=== PATIENT | female | born 1955 | race Hispanic/Latino ===

== ENCOUNTER 2016-12-21 07:31 | Emergency (ER) | payer MEDICARE ==
--- NOTE | 2016-12-21 10:38 | Emergency Department Report ---
ED Upper Extremity Inj HPI - General Chief Complaint: Extremity Injury, Upper Stated Complaint: RT WRIST AND ARM PAIN Time Seen by Provider: 12/21/16 10:25 Source: patient Mode of arrival: Ambulatory Limitations: No Limitations - History of Present Illness Initial Comments: Patient here reports pain to right wrist radiating down to her thumb that has been going on for approximately one week she says she had a fall about a month ago and did not follow up. She says she did not have any x-ray done of her wrist. Pain is radiating to her thumb third and fourth digit. She denies any numbness or tingling. Complaint: Injury to:: right, wrist Onset/Timin -: week(s) Other Extremity Injury: Hand: Right (pain radiating from wrist), Wrist: Right ( pain) Other Injuries: none Handedness: right Improves With: immobilization Worsens With: movement of extremity Context: fall Associated Symptoms: denies: weakness, numbness, neck pain, suspects foreign body, nausea/vomiting, heard/felt popping sensat Treatments Prior to Arrival: other (tylenol) - Related Data Home Medications Medication Instructions Recorded Confirmed Last Taken Albuterol Sulfate [Proventil HFA] 1 - 2 puff IH Q4H PRN 12/04/14 12/11/14 Furosemide [Lasix] 40 mg PO Q48H 12/04/14 12/11/14 12/09/14 Potassium Chloride 20 meq PO Q48HR 12/04/14 12/11/14 12/09/14 Tizanidine HCl [tiZANidine] 4 mg PO BID 12/04/14 12/11/14 12/10/14 Previous Rx's Medication Instructions Recorded Last Taken Type ALBUTEROL NEB's [Proventil 0.083% 2.5 mg IH TID PRN #60 ml 12/18/14 Unknown Rx NEBS] Carvedilol [Coreg] 12.5 mg PO BID #60 tablet 12/18/14 Unknown Rx Ezetimibe/Simvastatin (Nf) 1 tab PO QHS #30 tablet 12/18/14 Unknown Rx [Vytorin 10-40 mg (Nf)] Fluticasone/Salmeterol [Advair 1 puff IH BID #1 disk.w.dev 12/18/14 Unknown Rx Diskus 100-50 mcg] Gabapentin 300 mg PO TID #90 capsule 12/18/14 Unknown Rx Insulin Aspart [NovoLOG 100 30 units SQ TID #1 vial 12/18/14 Unknown Rx UNITS/ML VIAL] Insulin NPH, Human [NovoLIN N] 80 units SQ Q12H #1 vial 12/18/14 Unknown Rx Meloxicam [Mobic] 7.5 mg PO BID #30 tablet 12/18/14 Unknown Rx Pantoprazole [Protonix TAB] 40 mg PO QDAY #30 tablet 12/18/14 Unknown Rx Sertraline [Zoloft] 50 mg PO QDAY #30 tablet 12/18/14 Unknown Rx amLODIPine [Norvasc] 5 mg PO DAILY #30 tablet 12/18/14 Unknown Rx Cephalexin [Keflex] 500 mg PO Q8HR #30 cap 02/08/16 Unknown Rx predniSONE [Deltasone] 50 mg PO QDAY #5 tab 02/08/16 Unknown Rx traMADol [Ultram 50 MG tab] 50 mg PO Q6HR PRN #20 tablet 12/21/16 Unknown Rx Allergies Allergy/AdvReac Type Severity Reaction Status Date / Time ibuprofen AdvReac Hives Verified 12/21/16 08:12 naproxen [From Naprosyn] AdvReac Hives Verified 12/21/16 08:12 ED Review of Systems ROS: Stated complaint: RT WRIST AND ARM PAIN Other details as noted in HPI Comment: All other systems reviewed and negative Constitutional: denies: chills, fever Respiratory: no symptoms reported Cardiovascular: denies: chest pain, palpitations, edema, syncope Gastrointestinal: denies: nausea, vomiting Musculoskeletal: arthralgia. denies: back pain, joint swelling Skin: denies: rash Neurological: denies: headache, weakness, numbness, paresthesias ED Past Medical Hx - Past Medical History Previous Medical History?: Yes Hx Hypertension: Yes Hx Diabetes: Yes Hx Renal Disease: No Hx Arthritis: Yes Hx Asthma: Yes (2004 OX [place] 2L/MIN AT NIGHT AND DAILY PRN) Hx COPD: Yes (Per pulmonology note; pt denies) Additional medical history: sleep apnea - Surgical History Past Surgical History?: Yes Hx Cholecystectomy: Yes Additional Surgical History: bilateral knee replacements, hernia repair - Family History Family history: hypertension - Social History Smoking Status: Never Smoker Substance Use Type: None - Medications Home Medications: Home Medications Medication Instructions Recorded Confirmed Last Taken Type Albuterol Sulfate [Proventil HFA] 1 - 2 puff IH Q4H PRN 12/04/14 12/11/14 History Furosemide [Lasix] 40 mg PO Q48H 12/04/14 12/11/14 12/09/14 History Potassium Chloride 20 meq PO Q48HR 12/04/14 12/11/14 12/09/14 History Tizanidine HCl [tiZANidine] 4 mg PO BID 12/04/14 12/11/14 12/10/14 History ALBUTEROL NEB's [Proventil 0.083% 2.5 mg IH TID PRN #60 ml 12/18/14 Unknown Rx NEBS] Carvedilol [Coreg] 12.5 mg PO BID #60 tablet 12/18/14 Unknown Rx Ezetimibe/Simvastatin (Nf) 1 tab PO QHS #30 tablet 12/18/14 Unknown Rx [Vytorin 10-40 mg (Nf)] Fluticasone/Salmeterol [Advair 1 puff IH BID #1 disk.w.dev 12/18/14 Unknown Rx Diskus 100-50 mcg] Gabapentin 300 mg PO TID #90 capsule 12/18/14 Unknown Rx Insulin Aspart [NovoLOG 100 30 units SQ TID #1 vial 12/18/14 Unknown Rx UNITS/ML VIAL] Insulin NPH, Human [NovoLIN N] 80 units SQ Q12H #1 vial 12/18/14 Unknown Rx Meloxicam [Mobic] 7.5 mg PO BID #30 tablet 12/18/14 Unknown Rx Pantoprazole [Protonix TAB] 40 mg PO QDAY #30 tablet 12/18/14 Unknown Rx Sertraline [Zoloft] 50 mg PO QDAY #30 tablet 12/18/14 Unknown Rx amLODIPine [Norvasc] 5 mg PO DAILY #30 tablet 12/18/14 Unknown Rx Cephalexin [Keflex] 500 mg PO Q8HR #30 cap 02/08/16 Unknown Rx predniSONE [Deltasone] 50 mg PO QDAY #5 tab 02/08/16 Unknown Rx traMADol [Ultram 50 MG tab] 50 mg PO Q6HR PRN #20 tablet 12/21/16 Unknown Rx ED Physical Exam - General Limitations: No Limitations General appearance: alert, in no apparent distress - Head Head exam: Present: atraumatic, normocephalic, normal inspection - Respiratory Respiratory exam: Present: normal lung sounds bilaterally, respiratory distress. Absent: chest wall tenderness - Cardiovascular Cardiovascular Exam: Present: regular rate, normal rhythm, normal heart sounds - Extremities Exam Extremities exam: Present: normal inspection, full ROM, tenderness (right wrist) , normal capillary refill. Absent: pedal edema, joint swelling, calf tenderness - Expanded Upper Extremity Exam Right General: Present: normal inspection. Absent: laceration, abrasion Shoulder Exam: Present: normal inspection, full ROM. Absent: tenderness, swelling, abrasion, laceration, ecchymosis, deformity, crepidus, dislocation, erythema, tenderness over AC joint Upper Arm exam: Present: normal inspection, full ROM. Absent: tenderness, swelling, abrasion, laceration, ecchymosis, deformity, crepidus, dislocation, erythema Elbow exam: Present: normal inspection, full ROM. Absent: tenderness, swelling , abrasion, laceration, ecchymosis, deformity, crepidus, dislocation, erythema, effusion, pain w/ pronation/supination, tenderness over radial head Forearm Wrist exam: Present: normal inspection, full ROM, tenderness. Absent: swelling, abrasion, laceration, ecchymosis, deformity, crepidus, dislocation, erythema, tenderness over anatomical snuff box, pain with axial thumb loading Hand Wrist exam: Present: normal inspection, full ROM. Absent: tenderness, swelling, abrasion, laceration, ecchymosis, deformity, crepidus, dislocation, erythema, amputation, nail avulsion, subungual hematoma Neuro motor exam: Present: wrist extension intact, thumb opposition intact, thumb IP flexion intact. Absent: thumb adduction intact, fingers 2-5 abduction intact Neurosensory exam: Present: 2-point discrimination, radial nerve intact, ulnar nerve intact, median nerve intact Vascular: Present: vascular compromise, normal capillary refill. Absent: Pallo , pulse deficit radial art, pulse deficit ulnar art, pulse deficit brachial art , radial pulse, brachial pulse, ulnar pulse - Back Exam Back exam: Present: normal inspection, full ROM. Absent: tenderness, CVA tenderness (R), CVA tenderness (L), muscle spasm, paraspinal tenderness, vertebral tenderness, rash noted - Neurological Exam Neurological exam: Present: alert, oriented X3, normal gait, reflexes normal. Absent: motor sensory deficit - Psychiatric Psychiatric exam: Present: normal affect, normal mood - Skin Skin exam: Present: warm, dry, intact, normal color. Absent: rash ED Course Vital Signs 12/21/16 12/21/16 12/21/16 08:07 10:53 11:52 Temperature 98.5 F Pulse Rate 90 84 Respiratory 19 20 16 Rate Blood Pressure 142/69 Blood Pressure 136/74 [Right] O2 Sat by Pulse 97 96 Oximetry - Reevaluation(s) Reevaluation #1: 12/21/16 11:32 Patient given Laurel 5/325 mg 2 tablets in emergency room which relieved the wrist pain. - Orthopedic Splinting/Casting Injury #1 Side: right Upper Extremity Injury Location: wrist Upper Extremity Immobilizer: wrist splint ED Medical Decision Making - Radiology Data Radiology results: report reviewed X-ray report revealed no fracture or dislocation. - Medical Decision Making ED course: Patient here status post right wrist injury complaining of pain. He was seen and treated emergency room for arthralgia right wrist. Patient was referred to orthopedic doctor if she continues to have pain to her right wrist. I explained to patient that her that wrist x-ray revealed no fracture or dislocation. Patient was given Laurel 5/325 2 tablets in emergency room which relieved her pain. She was discharged home with family with prescription for tramadol. Critical care attestation.: If time is entered above; I have spent that time in minutes in the direct care of this critically ill patient, excluding procedure time. ED Disposition Clinical Impression: Arthralgia of right wrist Wrist injury Qualifiers: Encounter type: initial encounter Laterality: right Qualified Code(s): S69.91XA - Unspecified injury of right wrist, hand and finger(s), initial encounter Disposition: DISCHARGED TO HOME OR SELFCARE Is pt being admited?: No Does the pt Need Aspirin: No Condition: Stable Instructions: Wrist Injury (ED), Arthralgia (ED) Prescriptions: traMADol [Ultram 50 MG tab] 50 mg PO Q6HR PRN #20 tablet PRN Reason: Pain Referrals: PRIMARY CARE, [Primary Care Provider] - 3-5 Days Forms: Work/School Release Form(ED)
[2016-12-21] MEDS ORDERED: NORCO 5/325 PO ONE (10:43)
--- NOTE | 2016-12-21 11:16 | XRay Report ---
RIGHT WRIST, 3 VIEWS: History: wrist pain, injury. Normal bone mineralization. 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 Osteoarthritic changes are most pronounced at the base of the thumb. No evidence for displaced fracture, dislocation or ligamentous injury. The soft tissues are unremarkable. IMPRESSION: No acute osseous injury is identified. Degenerative changes.
[2016-12-21 11:53] VITALS: BP 136/74
== END 2016-12-21 11:52 | disposition home or self-care (01) ==
LOC: ED 07:31
DX: S69.91XA Unspecified injury of right wrist, hand and finger(s), initial encounter (principal); I10 Essential (primary) hypertension; E11.9 Type 2 diabetes mellitus without complications; J45.909 Unspecified asthma, uncomplicated; J44.9 Chronic obstructive pulmonary disease, unspecified; Z90.49 Acquired absence of other specified parts of digestive tract

== ENCOUNTER 2021-02-20 08:10 | Day surgery (SDC) | payer MEDICARE ==
[~2021-02-20 08:10] MED LIST: SODIUM CHLORIDE 0.9% 1000 ML 1,000 ML IV SCH
[2021-02-20] MEDS ORDERED: LIDOCAINE MPF (2%) 20 MG/1 ML VIAL 5 ML ONE (08:30)
--- NOTE | 2021-02-20 08:34 | Anesthesia Day of Surgery ---
Anesthesia Day of Surgery - Day of Surgery Patient Examined: Yes Patient H&P Reviewed: Yes Patient is NPO: Yes
--- NOTE | 2021-02-20 08:36 | Anesthesia Consultation ---
Anesthesia Consult and Med Hx Date of service: 02/20/21 - Airway Anesthetic Teeth Evaluation: Edentulous ROM Head & Neck: Adequate Mental/Hyoid Distance: Adequate Mallampati Class: Class III Intubation Access Assessment: Probably Good - Pre-Operative Health Status ASA Pre-Surgery Classification: ASA4 Proposed Anesthetic Plan: MAC - Pulmonary Hx Smoking: No Hx Asthma: Yes (2004 [place] 2L/MIN AT NIGHT AND DAILY PRN) Hx Respiratory Symptoms: Yes (RAHMAN) SOB: No COPD: Yes (Per pulmonology note; pt denies) Home Oxygen Therapy: Yes Hx Sleep Apnea: Yes - Cardiovascular System Hx Hypertension: Yes Hx Coronary Artery Disease: No (Pt reports negative NST 3-4 years ago) - Central Nervous System Hx Back Pain: Yes Hx Psychiatric Problems: No - Gastrointestinal Hx Gastroesophageal Reflux Disease: Yes - Endocrine Hx Renal Disease: No Hx Insulin Dependent Diabetes: Yes Hx Thyroid Disease: No - Hematic Hx Anemia: No - Other Systems Hx Cancer: No Hx Obesity: Yes
[2021-02-20] MEDS ORDERED: fentaNYL 100 MCG/2 ML INJ ONE (09:04)
[2021-02-20] MEDS ORDERED: KETAMINE/STERILE WATER 50 MG/ML SYRINGE ONE (09:05)
[2021-02-20] MEDS ORDERED: propofoL 200 MG/20 ML VIAL IV ONE ×2 (09:05→09:18)
--- NOTE | 2021-02-20 09:38 | Procedure Note ---
Date of procedure: 02/20/21 Pre-op diagnosis: Dysphagia and GERD Post-op diagnosis: other (Mild,Benign Esophageal Stenosis (s/p Esophageal Dilation)/ Mild to Moderate Erosive Esophagitis/ Gastritis and Gastric Nodules/ R/O Celaic Disease) Procedure: EGD with biopsy and s/p Esophageal dilation (Bynum Dilators-38 Fr and 42 Fr) Anesthesia: MAC Surgeon: STUART MAKI Estimated blood loss: minimal Pathology: list Specimen disposition: to lab Condition: stable Disposition: same day (Treat with PPI and Reglan, and encourage Probiotic use. Avoid aspirin and NSAID for 5 days, otherwise resume home medciation and follow up in 1 to 2 weeks ([phone]).)
--- NOTE | 2021-02-20 10:20 | Operative Report ---
DATE OF SURGERY: 02/20/2021 PROCEDURE: EGD with biopsy and esophageal dilation. INDICATIONS: This is a 66-year-old obese white female with an underlying history of diabetes mellitus, hypertension, who has lately been having problems with dysphagia. EGD was done to assess for the problem. DESCRIPTION OF PROCEDURE: Procedure was done after getting informed consent with MAC anesthesia. Instrument was passed through the hypopharynx into the esophagus, which showed some mild benign esophageal stenosis. This was dilated at the end of the procedure with a 38 and then subsequently with a 42-Danish Bynum dilator. There was some ekij-in-keuhsgcy distal erosive esophagitis present. Biopsy was obtained also from the distal esophagus. The stomach showed some gastric nodules in the antrum and some gastritis. Biopsy was done from the gastric nodule and the antrum, body, and angularis incisura to rule out for H. pylori and atrophic gastritis and to assess the gastric nodules, no gastric ulcers were noted. The pylorus was patent. The duodenum in the first and second portion appeared normal. Biopsy was done from the second part to rule out for possible celiac disease. IMPRESSION: Dysphagia, mild benign esophageal stenosis, gastritis, gastric nodule, rule out celiac disease, mild to moderate erosive esophagitis. PLAN: To treat the patient with PPI, have the patient avoid aspirin and aspirin-related products for the next few days and otherwise resume home medications and follow up in the office in 1-2 weeks' time. Procedure was done in the GI lab with assistance of the GI lab team, which included Luanne Caballero and Delfnia sanon, and with assistance of anesthesia. TID: [id number] RECEIPT: [id number] ALEXANDER/RAYMON
[2021-02-20 10:24] VITALS: BP 129/66
--- NOTE | 2021-02-20 10:51 | Post Anesthesia Evaluation ---
- Post Anesthesia Evaluation Patient Participated: Yes Airway Patent: Yes Stable Respiratory Function: Yes Nausea/Vomiting: No Temp > 96.8F: Yes Pain Manageable: Yes Adequeate Hydration: Yes Anesthesia Complications: No Block Receding Appropriately: Not Applicable Patient on Ventilator: No
== END 2021-02-20 10:15 | disposition home or self-care (01) ==
LOC: GIO 08:10
DX: R13.10 Dysphagia, unspecified (principal); K22.2 Esophageal obstruction; K29.70 Gastritis, unspecified, without bleeding; K31.89 Other diseases of stomach and duodenum; E11.9 Type 2 diabetes mellitus without complications; I10 Essential (primary) hypertension; G47.33 Obstructive sleep apnea (adult) (pediatric); E78.5 Hyperlipidemia, unspecified; D64.9 Anemia, unspecified; E66.01 Morbid (severe) obesity due to excess calories; M17.9 Osteoarthritis of knee, unspecified; J44.9 Chronic obstructive pulmonary disease, unspecified; K21.00 Gastro-esophageal reflux disease with esophagitis, without bleeding; F32.9 Major depressive disorder, single episode, unspecified; Z79.899 Other long term (current) drug therapy; Z79.4 Long term (current) use of insulin; Z90.49 Acquired absence of other specified parts of digestive tract; Z98.890 Other specified postprocedural states; Z68.43 Body mass index [BMI] 50.0-59.9, adult
CPT/HCPCS: 43239; 43450; 82962; 88305; 88312; 88342; J2704; J3010; J3490; J7030

== ENCOUNTER 2021-03-10 16:20 | Observation (INO) | payer MEDICARE, OTHER ==
--- NOTE | 2021-03-10 20:27 | Event Note ---
ED Screening Note ED Screening Note: Patient is a 66-year-old female presents emergency room complaints of shortness of breath that began 2 weeks ago She reports that she had her esophagus stretched 2 weeks ago and she has had symptoms since then She states that she has dyspnea on exertion and she is unable to lie flat at night She also has bilateral lower extremity edema This initial assessment/diagnostic orders/clinical plan/treatment(s) is/are subject to change based on patients health status, clinical progression and re- assessment by fellow clinical providers in the ED. Further treatment and workup at subsequent clinical providers discretion. Patient/guardian urged not to elope from the ED as their condition may be serious if not clinically assessed and managed. Initial orders include: Labs, x-ray, EKG, urine
[2021-03-10 20:56] LABS: Basophils % (Auto) 0.5 % (0.0-1.8); Eosinophils # (Auto) 0.2 K/mm3 (0.0-0.4); Eosinophils % (Auto) 2.7 % (0.0-4.3); Hematocrit 37.1 % (30.3-42.9); Hemoglobin 12.8 gm/dl (10.1-14.3); Lymphocytes # (Auto) 1.9 K/mm3 (1.2-5.4); Lymphocytes % (Auto) 29.1 % (13.4-35.0); Mean Corpuscular HGB Conc 34 % (30-34); Mean Corpuscular Volume 85 fl (79-97); Monocytes # (Auto) 0.3 K/mm3 (0.0-0.8); Monocytes % (Auto) 5.5 % (0.0-7.3); Platelet Count 220 K/mm3 (140-440); Red Blood Count 4.39 M/mm3 (3.65-5.03); Red Cell Distribution Width 14.5 % (13.2-15.2)
--- NOTE | 2021-03-10 21:00 | XRay Report ---
CHEST 2 VIEWS INDICATION / CLINICAL INFORMATION: Chest Pain. Difficulty swallowing. COMPARISON: None available. FINDINGS: SUPPORT DEVICES: None. HEART / MEDIASTINUM: No significant abnormality. LUNGS / PLEURA: No significant pulmonary or pleural abnormality. No pneumothorax. ADDITIONAL FINDINGS: No significant additional findings. IMPRESSION: 1. No acute findings. Signer Name: Nicolas Villa MD Signed: 03/10/2021 8:56 PM Workstation Name: [id number]
[2021-03-10 21:11] LABS: Alanine Aminotransferase 38 units/L (7-56); Albumin 3.8 g/dL (3.9-5); Blood Urea Nitrogen 5 mg/dL (7-17); Hemolysis Index 5
[2021-03-10 21:15] LABS: BUN/Creatinine Ratio 8
[2021-03-10 21:56] LABS: Bacteria,Urine 1+ /HPF (Negative); Bilirubin,Urine NEG (Negative); Blood,Urine NEG (Negative); Color,Urine Yellow (Yellow); Protein,Urine <15 mg/dL mg/dL (Negative); RBC,Urine < 1.0 /HPF (0.0-6.0); Urobilinogen,Urine < 2.0 mg/dL (<2.0)
[2021-03-11] MEDS ORDERED: SODIUM CHLORIDE 0.9% 1000 ML 1,000 ML IV ONE (14:21)
--- NOTE | 2021-03-11 15:17 | Emergency Department Report ---
ED Chest Pain HPI - General Chief Complaint: Dyspnea/Respdistress Stated Complaint: THROAT PAIN Time Seen by Provider: 03/10/21 20:25 Source: EMS Mode of arrival: Wheelchair Limitations: No Limitations - History of Present Illness Initial Comments: This is a 66-year-old female with multiple complaints. 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 I believe it might have been on February 20. The procedure note indicates that the patient had mild esophageal stenosis and esophagitis. The patient's chief complaint is left-sided chest pain which is pleuritic. She states that this began 3 days after the above procedure and has been persistent. She has not sought out evaluation of the chest pain. She states the reason she came to the emergency department was for increasing shortness of breath on exertion. She denies significant cough, fever or chills. She appears to have multiple other complaints to include a spontaneous appearing ecchymosis on her abdomen and general abdominal fullness. She states that she has had some diarrhea. She states that a few days ago she developed a hoarse voice. On further questioning the patient states that she has had significant leg swelling. She has had leg discomfort left calf greater than the right. She denies a previous history of VTE. She states that she had a stress test probably more than 5 years ago. She has not been diagnosed with coronary artery disease. She does have a history of COPD, type 2 insulin-dependent diabetes, hyperlipidemia and hypertension. MD Complaint: chest pain -: Gradual, days(s) Onset: during rest Pain Location: left chest Pain Radiation: none Severity: mild, moderate Quality: aching Consistency: constant (States persistent) Improves With: nothing Worsens With: inspiration Context: other (GI procedure 2 weeks ago) re: denies: nausea, vomting, diaphoresis Other Symptoms: denies: cough, fever, syncope Treatments Prior to Arrival: none Aspirin use within the Past 7 Days: (0) No - Related Data Home Medications Medication Instructions Recorded Confirmed Last Taken Albuterol Sulfate [Proventil HFA] 1 - 2 puff IH Q4H PRN 12/04/14 03/31/17 11/20/14 Furosemide [Lasix] 40 mg PO Q48H 12/04/14 03/31/17 03/30/17 Potassium Chloride 20 meq PO Q48HR 12/04/14 03/31/17 03/30/17 Tizanidine HCl [tiZANidine] 4 mg PO BID 12/04/14 03/31/17 03/30/17 Previous Rx's Medication Instructions Recorded Last Taken Type ALBUTEROL NEB's [Proventil 0.083% 2.5 mg IH TID PRN #60 ml 12/18/14 Unknown Rx NEBS] Ezetimibe/Simvastatin (Nf) 1 tab PO QHS #30 tablet 12/18/14 03/29/17 Rx [Vytorin 10-40 mg (Nf)] Fluticasone/Salmeterol [Advair 1 puff IH BID #1 disk.w.dev 12/18/14 03/30/17 Rx Diskus 100-50 mcg] Gabapentin 300 mg PO TID #90 capsule 12/18/14 03/30/17 Rx Insulin Aspart (Nf) [NovoLOG 100 30 units SQ TID #1 vial 12/18/14 03/30/17 Rx UNITS/ML VIAL] Insulin NPH, Human [NovoLIN N] 80 units SQ Q12H #1 vial 12/18/14 03/30/17 Rx amLODIPine 5 mg PO DAILY #30 tablet 12/18/14 03/30/17 Rx Famotidine/Ca Carb/Mag Hydrox 1 each PO BID #20 tab.chew 03/31/17 Unknown Rx [Pepcid Complete Tablet Chew] oxyCODONE /ACETAMINOPHEN [Percocet 1 tab PO BID PRN #14 tablet 03/31/17 Unknown Rx 5/325] Metoclopramide [Reglan] 10 mg PO TID 30 Days #60 tab 02/20/21 Unknown Rx Pantoprazole [Protonix] 40 mg PO QDAY 30 Days #30 tablet 02/20/21 Unknown Rx Allergies Allergy/AdvReac Type Severity Reaction Status Date / Time No Known Allergies Allergy Verified 02/20/21 08:53 Heart Score - HEART Score History: Slightly suspicious EKG: Non-specific Age: > 65 Risk factors: > 3 risk factors or hx of atherosclerotic disease Troponin: 1-3x normal limit HEART Score: 6 - EKG Read Time Time EKG Completed: 08:05 EKG Read Time: 08:20 - Critical Actions Critical Actions: 4-6 pts:12-16.6% risk of adverse cardiac event. Should be admitted ED Review of Systems ROS: Stated complaint: THROAT PAIN Other details as noted in HPI Constitutional: denies: chills, fever Eyes: denies: eye pain, vision change ENT: other. denies: ear pain, throat pain Respiratory: shortness of breath, SOB with exertion (Hoarse voice). denies: cough Cardiovascular: chest pain. denies: palpitations Endocrine: no symptoms reported Gastrointestinal: diarrhea. denies: abdominal pain, nausea, vomiting Genitourinary: denies: urgency, dysuria Musculoskeletal: denies: back pain Skin: denies: rash, lesions Neurological: denies: headache, weakness, paresthesias Psychiatric: denies: anxiety, depression Hematological/Lymphatic: denies: easy bleeding, easy bruising ED Past Medical Hx - Past Medical History Previous Medical History?: Yes Hx Hypertension: Yes Hx Diabetes: Yes Hx Renal Disease: No Hx Arthritis: Yes Hx Asthma: Yes (2004 OX NC 2L/MIN AT NIGHT AND DAILY PRN) Hx COPD: Yes (Per pulmonology note; pt denies) Additional medical history: sleep apnea - Surgical History Hx Cholecystectomy: Yes Additional Surgical History: bilateral knee replacements, hernia repair - Social History Smoking Status: Never Smoker - Medications Home Medications: Home Medications Medication Instructions Recorded Confirmed Last Taken Type Albuterol Sulfate [Proventil HFA] 1 - 2 puff IH Q4H PRN 12/04/14 03/31/17 11/20/14 History Furosemide [Lasix] 40 mg PO Q48H 12/04/14 03/31/17 03/30/17 History Potassium Chloride 20 meq PO Q48HR 12/04/14 03/31/17 03/30/17 History Tizanidine HCl [tiZANidine] 4 mg PO BID 12/04/14 03/31/17 03/30/17 History ALBUTEROL NEB's [Proventil 0.083% 2.5 mg IH TID PRN #60 ml 12/18/14 03/31/17 Unknown Rx NEBS] Ezetimibe/Simvastatin (Nf) 1 tab PO QHS #30 tablet 12/18/14 03/31/17 03/29/17 Rx [Vytorin 10-40 mg (Nf)] Fluticasone/Salmeterol [Advair 1 puff IH BID #1 disk.w.dev 12/18/14 03/31/17 03/30/17 Rx Diskus 100-50 mcg] Gabapentin 300 mg PO TID #90 capsule 12/18/14 03/31/17 03/30/17 Rx Insulin Aspart (Nf) [NovoLOG 100 30 units SQ TID #1 vial 12/18/14 03/31/17 03/30/17 Rx UNITS/ML VIAL] Insulin NPH, Human [NovoLIN N] 80 units SQ Q12H #1 vial 12/18/14 03/31/17 03/30/17 Rx amLODIPine 5 mg PO DAILY #30 tablet 12/18/14 03/31/17 03/30/17 Rx Famotidine/Ca Carb/Mag Hydrox 1 each PO BID #20 tab.chew 03/31/17 Unknown Rx [Pepcid Complete Tablet Chew] oxyCODONE /ACETAMINOPHEN [Percocet 1 tab PO BID PRN #14 tablet 03/31/17 Unknown Rx 5/325] Metoclopramide [Reglan] 10 mg PO TID 30 Days #60 tab 02/20/21 Unknown Rx Pantoprazole [Protonix] 40 mg PO QDAY 30 Days #30 tablet 02/20/21 Unknown Rx ED Physical Exam - General Limitations: Physical Limitation General appearance: alert, in no apparent distress, obese - Head Head exam: Present: atraumatic, normocephalic - Eye Eye exam: Present: normal appearance. Absent: scleral icterus - ENT ENT exam: Present: mucous membranes moist - Neck Neck exam: Present: normal inspection. Absent: tenderness, meningismus - Respiratory Respiratory exam: Present: normal lung sounds bilaterally. Absent: respiratory distress - Cardiovascular Cardiovascular Exam: Present: regular rate, normal rhythm. Absent: systolic murmur, diastolic murmur, rubs, gallop - GI/Abdominal GI/Abdominal exam: Present: soft, distended (Somewhat), normal bowel sounds, other (Abdominal ecchymosis noted). Absent: tenderness, guarding, rebound, rigid - Extremities Exam Extremities exam: Present: normal inspection - Back Exam Back exam: Present: normal inspection - Neurological Exam Neurological exam: Present: alert, oriented X3, CN II-XII intact. Absent: motor sensory deficit - Psychiatric Psychiatric exam: Present: normal affect, normal mood - Skin Skin exam: Present: warm, dry, intact, normal color. Absent: rash ED Course Vital Signs 03/10/21 03/11/21 20:24 02:57 Temperature 98.5 F Pulse Rate 94 H 83 Respiratory 17 16 Rate Blood Pressure 180/80 Blood Pressure 159/62 [Right] O2 Sat by Pulse 96 98 Oximetry - Reevaluation(s) Reevaluation #1: Discussed with RAVEN Nelson. He stated that he would like to have the patient admitted for PUI. He will consult. Discussed with Dr. Lemons. CTAs are pending. Doppler is pending. He is aware. I do not think the patient has a surgical complication of bougienage which was over 2 weeks ago. This would appear to be exceedingly unlikely. I do think that the spectrum of venous thromboembolism is certainly a possibility. Patient has multiple risk factors for coronary artery disease as well. She has multiple indications for admission. 03/11/21 15:44 ` RADHA score - Radha Score Age > 65: (0) No Aspirin use within the Past 7 Days: (0) No 3 or more CAD Risk Factors: (1) Yes 2 or more Angina events in past 24 hrs: (0) No Known CAD with more than 50% Stenosis: (0) No Elevated Cardiac Markers: (0) No ST Deviation Greater than 0.5mm: (0) No RADHA Score: 1 ED Medical Decision Making - Lab Data Result diagrams: 03/10/21 20:39 03/10/21 20:38 Critical care attestation.: If time is entered above; I have spent that time in minutes in the direct care of this critically ill patient, excluding procedure time. ED Disposition Clinical Impression: Person under investigation for COVID-19, Pleuritic chest pain, Dyspnea on effort, Morbid obesity, Obstructive sleep apnea Chest pain Qualifiers: Chest pain type: unspecified Qualified Code(s): R07.9 - Chest pain, unspecified Dysphagia Qualifiers: Dysphagia type: unspecified Qualified Code(s): R13.10 - Dysphagia, unspecified Hyperlipidemia Qualifiers: Hyperlipidemia type: unspecified Qualified Code(s): E78.5 - Hyperlipidemia, unspecified Type 2 diabetes mellitus Qualifiers: Diabetes mellitus snf insulin use: with snf use Diabetes mellitus complication status: without complication Qualified Code(s): E11.9 - Type 2 diabetes mellitus without complications Hypertension Qualifiers: Hypertension type: essential hypertension Qualified Code(s): I10 - Essential (primary) hypertension Disposition: DC-09 OP ADMIT IP TO THIS HOSP Is pt being admited?: Yes Does the pt Need Aspirin: Yes Condition: Stable Instructions: Nonspecific Chest Pain, Adult, Diabetes Mellitus Type 2 in Adults (ED), Hypertension (ED) Referrals: PRIMARY CARE,MD [Primary Care Provider] - 3-5 Days Time of Disposition: 15:47
[2021-03-11] MEDS ORDERED: LORazepam 2 MG/ML VIAL ONE (15:25)
[2021-03-11] MEDS ORDERED: LORazepam 2 MG/ML VIAL IV ONE (15:25)
--- NOTE | 2021-03-11 15:33 | Vascular Lab Report ---
VL venous duplex LE BILAT INDICATION / CLINICAL INFORMATION: swelling leg/pain l>r. TECHNIQUE: Duplex doppler imaging was performed using venous compression and other maneuvers. COMPARISON: None available. FINDINGS: No venous thrombosis is identified within the visualized extremity vasculature. ADDITIONAL FINDINGS: None. IMPRESSION: 1. No sonographic evidence for DVT in the visualized bilateral lower extremity vasculature. Signer Name: Vikas Ochoa MD Signed: 03/11/2021 3:28 PM Workstation Name: [id number]
[2021-03-11 15:58] LABS: C-Reactive Protein 0.8 mg/dL (0.00-1.30)
--- NOTE | 2021-03-11 17:44 | Cat Scan Report ---
CT neck wo con INDICATION / CLINICAL INFORMATION: 66 years Female; dysphonia esophagia dilatation 2 wks ago. TECHNIQUE: Contiguous thin cut axial images obtained through the neck following IV contrast. Sagittal and caldwell l reconstructions performed by the technologist. All CT scans at this location are performed using CT dose reduction for ALARA by means of automated exposure control. COMPARISON: None available. FINDINGS: MUCOSAL SPACE: The motion as well as the beam hardening from the patient's body habitus degrade the i mage quality. However, no definitive focal lesions are seen involving visualized oropharyngeal soft t issues. The epiglottis appears appropriate in size. The laryngeal structures are particularly degrade d by the degree of motion and may be related to superimposed swallowing. The upper esophagus is gross ly unremarkable and correlation would be needed given history of "esophageal dilatation 2 weeks ago". LYMPH NODES: There are a few scattered cervical lymph nodes the largest within the left jugulodigastr ic region measuring 0.8 cm in short axis dimension. These nodes are nonspecific though likely reactiv e. Small nodes are also noted within the left supraclavicular region. SALIVARY GLANDS: There is symmetric fatty attenuation involving parotid glands bilaterally without ca lcification. The findings are most consistent with adjacent lymph nodes at. The oval-shaped lesion al shoshana the superior left parotid gland measures 0.9 cm AP by 2.0 cm transverse and would also appear mos t consistent with a lymph node and correlation would be needed in this region. There are atrophic sindi nges involving the 70 better glands. THYROID GLAND: The thyroid gland is obscured by the beam hardening artifact. No definitive dominant l esions are identified. PARANASAL SINUSES: Visualized paranasal sinuses and mastoid air cells are essentially clear. SPINE: No significant abnormality of the cervical spine appreciated. VASCULAR STRUCTURES: There is mild atherosclerotic calcification involving right carotid bifurcation on this noncontrast study. IMPRESSION: 1. There are a few scattered cervical lymph nodes as detailed above. The motion and beam hardening de grade the image quality though there is no clear CT evidence of significant inflammatory changes invo lving the soft tissues of the neck. 2. The visualized uppermost esophagus is grossly unremarkable and correlation would be needed given t he history of "esophageal dilatation 2 weeks ago". The CTA chest is dictated separately. Signer Name: Jeffrey Baumann MD Signed: 03/11/2021 5:40 PM Workstation Name: [id number]
--- NOTE | 2021-03-11 17:47 | Cat Scan Report ---
CTA CHEST WITH IV CONTRAST INDICATION: pleuritic left CP. Left-sided chest pain with dyspnea TECHNIQUE: Axial CT images were obtained through the chest after injection of 100 mL IV contrast. 3 plane MIP re constructions were produced. All CT scans at this location are performed using CT dose reduction for ALARA by means of automated exposure control. COMPARISON: None available. FINDINGS: PULMONARY ARTERIES: No pulmonary emboli. AORTA AND ARTERIES: No acute abnormality. Mild coronary artery calcification. MEDIASTINUM: No mass, lymphadenopathy or other significant abnormality. The heart is normal in size w ithout a pericardial effusion. The trachea and main bronchi are patent and normal in caliber. LUNGS: No suspicious consolidation, nodule or mass. No pneumothorax or pleural effusion. ADDITIONAL FINDINGS: None. UPPER ABDOMEN: See separately reported CT. BONES: No significant osseous abnormality. IMPRESSION: 1. No CT evidence for pulmonary embolism. 2. No acute intrathoracic findings. Signer Name: Corbin Fong MD Signed: 03/11/2021 5:42 PM Workstation Name: [id number]
--- NOTE | 2021-03-11 17:53 | Cat Scan Report ---
CT abdomen pelvis w con INDICATION / CLINICAL INFORMATION: abd pain. TECHNIQUE: Routine CT abdomen and pelvis with IV contrast All CT scans at this location are performed using CT d ose reduction for ALARA by means of automated exposure control. COMPARISON: None available. FINDINGS: Abdomen and pelvis: The liver is enlarged. Prior cholecystectomy. The spleen is somewhat lobular cont our. There are several borderline enlarged nodes and pathologically enlarged nodes within the gastroh epatic ligament measuring up to 1.2 cm in diameter. No focal pancreatic abnormality is identified. Th e adrenal glands and kidneys are grossly unremarkable. There is a prominent area diastases within the lower abdominal wall. Urinary bladder is fluid distend ed. The uterus is enlarged and multilobular. No free pelvic fluid is identified. There is sigmoid div erticulosis but no diverticulitis. The appendix is difficult to visualize. There is scattered atheros clerotic calcification of a nondilated abdominal aorta. Review of bone windows demonstrates mild thoracolumbar degenerative changes. IMPRESSION: 1. Enlarged, fatty liver with multiple pathologically enlarged nodes within the gastrohepatic ligamen t which could be seen with underlying hepatitis. 2. Prominent ventral diastases of the ventral abdominal wall especially along the lower pelvis, as ab ove. 3. Severe sigmoid diverticulosis but no active diverticulitis identified. 4. Enlarged, multilobular uterus suggesting the possibility of underlying fibroids. Pelvic ultrasound be needed for additional characterization. Signer Name: Corbin Fong MD Signed: 03/11/2021 5:48 PM Workstation Name: [id number]
--- NOTE | 2021-03-11 18:04 | History and Physical Report ---
History of Present Illness Chief complaint: It hurts when I swallow History of present illness: 66 YO Female with Obesity Hypoventilation Syndrome, HTN, DM, OA, Asthma, COPD, Chronic Respiratory Failure on 2L Home Oxygen, Dysphagia S/P Esophageal Dilitation presents to ED for evaluation. Patient reports "it hurts when I swallow". Patient states that she has experienced pain upon swallowing which began 3 days after esophageal dilatation. Patient states the pain is 3/10, intermittent, associated with swallowing, and has been persistent over the past 2 weeks. EMS was notified and upon arrival the patient was found to be in distress and subsequently transported to [facility] for further care and evaluation of the aforementioned symptoms. The patient was seen and evaluated in the emergency department. All lab and imaging studies reviewed. Patient found to have symptoms consistent with odynophagia resulting in atypical chest pain. Patient placed in observation status and admitted to medical floor for further care and evaluation. GI team consulted in ED. Patient denies fever, chills, chest pain, palpitations, productive cough, skin rash, recent ill contacts, or known exposure to COVID-19. Prior admission on 03/31/2017 reviewed. All medication listed at time of admission has been reconciled. Advanced care planning conducted in ED. Past History Past Medical History: arthritis, COPD, diabetes, hypertension, other (See HPI) Past Surgical History: hernia repair, total knee replacement Social history: . denies: smoking, alcohol abuse, prescription drug abuse Family history: diabetes, hypertension Medications and Allergies Allergies Allergy/AdvReac Type Severity Reaction Status Date / Time No Known Allergies Allergy Verified 02/20/21 08:53 Home Medications Medication Instructions Recorded Confirmed Last Taken Type Albuterol Sulfate [Proventil Hfa] 6.7 gm IH BID 03/11/21 03/11/21 Unknown History Bacillus Coagulans [Probiotic] 2 each PO QDAY 03/11/21 03/11/21 Unknown History Gabapentin [Neurontin] 1,200 mg PO QPM 03/11/21 03/11/21 Unknown History Insulin Glargine [Lantus VIAL] 52 units SUB-Q QAM 03/11/21 03/11/21 Unknown History Lispro Insulin [HumaLOG] 15 unit SQ TID 03/11/21 03/11/21 Unknown History Metoclopramide [Reglan] 10 mg PO ACHS 03/11/21 03/11/21 Unknown History Pantoprazole Sodium [Protonix] 40 mg PO QDAY 03/11/21 03/11/21 Unknown History Pioglitazone HCl [Actos] 30 mg PO QDAY 03/11/21 03/11/21 Unknown History amLODIPine [Norvasc] 5 mg PO DAILY 03/11/21 03/11/21 Unknown History tiZANidine [Zanaflex 4mg TAB] 4 mg PO BID 03/11/21 03/11/21 Unknown History Active Meds: Active Medications Acetaminophen (Acetaminophen 325 Mg Tab) 650 mg PO Q4H PRN PRN Reason: Pain MILD(1-3)/Fever >100.5/CROOK Sodium Chloride (Nacl 0.9% 1000 Ml) 1,000 mls @ 125 mls/hr IV ONCE ONE Stop: 03/11/21 22:20 Last Admin: 03/11/21 17:23 Dose: 125 mls/hr Documented by: Ondansetron HCl (Ondansetron 4 Mg/2 Ml Inj) 4 mg IV Q8H PRN PRN Reason: Nausea And Vomiting Sodium Chloride (Sodium Chloride 0.9% 10 Ml Flush Syringe) 10 ml IV BID ADEBAYO Sodium Chloride (Sodium Chloride 0.9% 10 Ml Flush Syringe) 10 ml IV PRN PRN PRN Reason: LINE FLUSH Review of Systems Constitutional: no weight loss, no weight gain, no fever Ears, nose, mouth and throat: no ear pain, no ear discharge, no tinnitis, no nasal congestion Breasts: no change in shape, no swelling Cardiovascular: no chest pain, no orthopnea, no palpitations, no rapid/irregular heart beat, no edema Respiratory: no cough, no cough with sputum, no excessive sputum, no shortness of breath Gastrointestinal: no abdominal pain, no nausea, no vomiting, no constipation Genitourinary Female: no pelvic pain, no flank pain, no dysuria, no urinary frequency, no urgency Rectal: no pain, no incontinence, no bleeding Musculoskeletal: no neck stiffness, no shooting arm pain, no arm numbness/tingling, no leg numbness/tingling Integumentary: no rash, no pruritis, no redness, no sores, no wounds Neurological: no head injury, no transient paralysis, no weakness, no parathesias, no numbness, no tingling, no seizures, no syncope Psychiatric: no anxiety, no change in sleep habits, no sleep disturbances, no change in appetite Endocrine: no cold intolerance, no heat intolerance, no polyphagia, no polydipsia, no polyuria, no nocturia, no excessive sweating Hematologic/Lymphatic: no easy bruising, no easy bleeding Allergic/Immunologic: no urticaria, no allergic rhinitis, no wheezing Exam - Constitutional Vitals: Temp Pulse Resp BP Pulse Ox 98.1 F 90 17 161/64 99 03/11/21 17:17 03/11/21 17:00 03/11/21 17:00 03/11/21 17:00 03/11/21 17:00 General appearance: Present: mild distress, obese - EENT Eyes: Present: PERRL ENT: hearing intact, clear oral mucosa - Neck Neck: Present: supple, normal ROM - Respiratory Respiratory effort: normal Respiratory: bilateral: CTA - Cardiovascular Heart Sounds: Present: S1 & S2. Absent: rub, click - Extremities Extremities: pulses symmetrical, No edema Peripheral Pulses: within normal limits - Abdominal General gastrointestinal: Present: soft, non-tender, non-distended, normal bowel sounds Female genitourinary: Present: normal - Integumentary Integumentary: Present: clear, warm, dry - Musculoskeletal Musculoskeletal: gait normal, strength equal bilaterally - Psychiatric Psychiatric: appropriate mood/affect, intact judgment & insight - Neurologic Neurologic: CNII-XII intact, moves all extremities HEART Score - HEART Score EKG: Non-specific Age: > 65 Risk factors: > 3 risk factors or hx of atherosclerotic disease Troponin: Troponin T < 0.010 ng/mL (0.00-0.029) 03/10/21 23:55 Troponin: 1-3x normal limit - Critical Actions Critical Actions: 4-6 pts:12-16.6% risk of adverse cardiac event. Should be admitted Results - Labs CBC & Chem 7: 03/10/21 20:39 03/11/21 15:24 Labs: Abnormal lab results 03/10/21 03/11/21 03/11/21 Range/Units 20:38 15:24 15:24 D-Dimer 404.66 H (0-234) ng/mlDDU BUN 5 L (7-17) mg/dL Glucose 219 H 242 H (65-100) mg/dL Lactate Dehydrogenase 237 H (91-180) units/L Albumin 3.8 L (3.9-5) g/dL Assessment and Plan - Patient Problems (1) Odynophagia Current Visit: Yes Status: Acute Plan to address problem: Carafate p.o. twice daily, PPI therapy, GI team consulted in ED. Supportive care. CT neck, CT scan chest, CT scan abdomen and pelvis further care and evaluation as per GI team. (2) Obesity hypoventilation syndrome Current Visit: Yes Status: Acute Plan to address problem: Balanced diet, increase physical activity at discharge, pulmonary follow-up for sleep study, outpatient bariatric surgery follow-up. (3) Hypertension Current Visit: Yes Status: Acute Qualifiers: Hypertension type: essential hypertension Qualified Code(s): I10 - Essential (primary) hypertension Plan to address problem: Monitor blood pressure every shift, continue medical management (4) Chronic respiratory failure Current Visit: Yes Status: Acute Qualifiers: Respiratory failure complication: hypoxia Qualified Code(s): J96.11 - Chronic respiratory failure with hypoxia Plan to address problem: Supplemental oxygen via nasal cannula, pulse oximetry, supportive care. (5) DVT prophylaxis Current Visit: Yes Status: Acute Plan to address problem: SCDs bilateral lower extremities while in bed, patient is ambulatory (6) Advance care planning Current Visit: Yes Status: Acute Plan to address problem: Disease education conducted, care plan discussed, diagnoses discussed, patient is full code. Patient knowledges understanding and agreement with care plan, +30 minutes.
[2021-03-11] MEDS: SODIUM CHLORIDE 0.9% 1000 ML 1,000 ML IV SCH (23:50)
[2021-03-12] MEDS: INSULIN LISPRO 100 UNIT/ML SUB-Q SCH ×6 (01:30→23:14)
[2021-03-12] MEDS: ONDANSETRON 4 MG/2 ML INJ IV PRN (04:22)
--- NOTE | 2021-03-12 09:22 | Progress Note ---
Assessment and Plan Assessment and plan: 66 YO Female with Obesity Hypoventilation Syndrome, HTN, DM, OA, Asthma, COPD, Chronic Respiratory Failure on 2L Home Oxygen, Dysphagia S/P Esophageal Dilitation presents to ED for evaluation. Patient reports "it hurts when I swallow". Patient states that she has experienced pain upon swallowing which be farida 3 days after esophageal dilatation. Patient states the pain is 3/10, intermittent, associated with swallowing, and has been persistent over the past 2 weeks. EMS was notified and upon arrival the patient was found to be in distress and subsequently transported to [facility] for further care and evaluation of the aforementioned symptoms. The patient was seen and evaluated in the emergency department. All lab and imaging studies reviewed. Patient found to have symptoms consistent with odynophagia resulting in atypical chest pain. Patient placed in observation status and admitted to medical floor for further care and evaluation. GI team consulted in ED. Patient denies fever, chills, chest pain, palpitations, productive cough, skin rash, recent ill contacts, or known exposure to COVID-19. Prior admission on 03/31/2017 reviewed. All medication listed at time of admission has been reconciled. Advanced care planning conducted in ED. 03/12: Patient reported diarrhea this morningwe will check C. difficile colitis although I think this is less likely there is no abdominal pain and no fever. Awaiting Covid testing patient is chronically on oxygen 3 L at home as opposed to 2 days listed above from admission. She says that her odynophagia has not improved since the dilatation so will await GI evaluation as she is still unable to keep p.o. down. Imaging studies reviewed and noted lymphadenopathy is discussed with the patient this will need closer monitoring and evaluation I also recommended an outpatient hematology evaluation and referral has been put in for discharge planning. We will continue pain control for muscle wall pain likely underlying costochondritis although she denies any fall or trauma to the site she also denies any persistent cough. Home medication reconciliation done to the best of my knowledge we will continue to monitor her blood sugar considering her history of diabetes (1) Odynophagia Current Visit: Yes Status: Acute Plan to address problem: Carafate p.o. twice daily, PPI therapy, GI team consulted in ED. Supportive care. CT neck, CT scan chest, CT scan abdomen and pelvis further care and evaluation as per GI team. (2) Obesity hypoventilation syndrome Current Visit: Yes Status: Acute Plan to address problem: Balanced diet, increase physical activity at discharge, pulmonary follow-up for sleep study, outpatient bariatric surgery follow-up. (3) Hypertension Current Visit: Yes Status: Acute Qualifiers: Hypertension type: essential hypertension Qualified Code(s): I10 - Essential (primary) hypertension Plan to address problem: Monitor blood pressure every shift, continue medical management (4) Chronic respiratory failure Current Visit: Yes Status: Acute Qualifiers: Respiratory failure complication: hypoxia Qualified Code(s): J96.11 - Chronic respiratory failure with hypoxia Plan to address problem: Supplemental oxygen via nasal cannula, pulse oximetry, supportive care. (5) Diabetes mellitus (6) Lymphadenopathy (7) DVT prophylaxis Current Visit: Yes Status: Acute Plan to address problem: SCDs bilateral lower extremities while in bed, patient is ambulatory (8) Advance care planning Current Visit: Yes Status: Acute Plan to address problem: Disease education conducted, care plan discussed, diagnoses discussed, patient is full code. Patient knowledges understanding and agreement with care plan, +30 minutes. History Interval history: Patient seen and examined this morning reports persistent left-sided muscle wall tenderness and noted diarrhea today Hospitalist Physical - Physical exam Narrative exam: General appearance: Present: mild distress, Morbid obese - EENT Eyes: Present: PERRL ENT: hearing intact, clear oral mucosa - Neck Neck: Present: supple, normal ROM - Respiratory Respiratory effort: normal Respiratory: bilateral: CTA - Cardiovascular Heart Sounds: Present: S1 & S2. Absent: rub, click - Extremities Extremities: pulses symmetrical, No edema Peripheral Pulses: within normal limits - Abdominal General gastrointestinal: Present: soft, non-tender, non-distended, normal bowel sounds Female genitourinary: Present: normal - Integumentary Integumentary: Present:see nursing documentation - Musculoskeletal Musculoskeletal: gait normal, strength equal bilaterally - Psychiatric Psychiatric: appropriate mood/affect, intact judgment & insight - Neurologic Neurologic: CNII-XII intact, moves all extremities - Constitutional Vitals: Temp Pulse Resp BP Pulse Ox 98.3 F 69 22 125/61 98 03/12/21 05:52 03/12/21 05:52 03/12/21 05:52 03/12/21 05:52 03/12/21 05:52 General appearance: Present: mild distress, obese HEART Score - HEART Score EKG: Non-specific Age: > 65 Risk factors: > 3 risk factors or hx of atherosclerotic disease Troponin: Troponin T < 0.010 ng/mL (0.00-0.029) 03/10/21 23:55 Troponin: 1-3x normal limit - Critical Actions Critical Actions: 4-6 pts:12-16.6% risk of adverse cardiac event. Should be ad mitted Results - Labs CBC & Chem 7: 03/10/21 20:39 03/11/21 15:24 Labs: Laboratory Last Values WBC 6.4 K/mm3 (4.5-11.0) 03/10/21 20:39 RBC 4.39 M/mm3 (3.65-5.03) 03/10/21 20:39 Hgb 12.8 gm/dl (10.1-14.3) 03/10/21 20:39 Hct 37.1 % (30.3-42.9) 03/10/21 20:39 MCV 85 fl (79-97) 03/10/21 20:39 MCH 29 pg (28-32) 03/10/21 20:39 MCHC 34 % (30-34) 03/10/21 20:39 RDW 14.5 % (13.2-15.2) 03/10/21 20:39 Plt Count 220 K/mm3 (140-440) 03/10/21 20:39 Lymph % (Auto) 29.1 % (13.4-35.0) 03/10/21 20:39 [place] % (Auto) 5.5 % (0.0-7.3) 03/10/21 20:39 Eos % (Auto) 2.7 % (0.0-4.3) 03/10/21 20:39 Baso % (Auto) 0.5 % (0.0-1.8) 03/10/21 20:39 Lymph # (Auto) 1.9 K/mm3 (1.2-5.4) 03/10/21 20:39 [place] # (Auto) 0.3 K/mm3 (0.0-0.8) 03/10/21 20:39 Eos # (Auto) 0.2 K/mm3 (0.0-0.4) 03/10/21 20:39 Baso # (Auto) 0.0 K/mm3 (0.0-0.1) 03/10/21 20:39 Seg Neutrophils % 62.2 % (40.0-70.0) 03/10/21 20:39 Seg Neutrophils # 4.0 K/mm3 (1.8-7.7) 03/10/21 20:39 D-Dimer 404.66 ng/mlDDU (0-234) H 03/11/21 15:24 Sodium 139 mmol/L (137-145) 03/10/21 20:38 Potassium 3.6 mmol/L (3.6-5.0) 03/10/21 20:38 Chloride 99.9 mmol/L (98-107) 03/10/21 20:38 Carbon Dioxide 28 mmol/L (22-30) 03/10/21 20:38 Anion Gap 15 mmol/L 03/10/21 20:38 BUN 5 mg/dL (7-17) L 03/10/21 20:38 Creatinine 0.6 mg/dL (0.6-1.2) 03/10/21 20:38 Estimated GFR > 60 ml/min 03/10/21 20:38 BUN/Creatinine Ratio 8 % 03/10/21 20:38 Glucose 242 mg/dL (65-100) H 03/11/21 15:24 POC Glucose 156 mg/dL (70-105) H 03/12/21 00:04 Calcium 9.0 mg/dL (8.4-10.2) 03/10/21 20:38 Ferritin 50.3 ng/mL (10.0-200.0) 03/11/21 15:24 Total Bilirubin 0.30 mg/dL (0.1-1.2) 03/10/21 20:38 AST 33 units/L (5-40) 03/10/21 20:38 ALT 38 units/L (7-56) 03/10/21 20:38 Alkaline Phosphatase 106 units/L (35-129) 03/10/21 20:38 Lactate Dehydrogenase 237 units/L (91-180) H 03/11/21 15:24 Troponin T < 0.010 ng/mL (0.00-0.029) 03/10/21 23:55 C-Reactive Protein 0.80 mg/dL (0.00-1.30) 03/11/21 15:24 NT-Pro-B Natriuret Pep 199.5 pg/mL (0-900) 03/10/21 20:38 Total Protein 7.4 g/dL (6.3-8.2) 03/10/21 20:38 Albumin 3.8 g/dL (3.9-5) L 03/10/21 20:38 Albumin/Globulin Ratio 1.1 % 03/10/21 20:38 Procalcitonin < 0.05 ng/mL (<0.15) 03/11/21 15:24 Urine Color Yellow (Yellow) 03/10/21 20:55 Urine Turbidity Slightly-cloudy (Clear) 03/10/21 20:55 Urine pH 6.0 (5.0-7.0) 03/10/21 20:55 Ur Specific [place] 1.006 (1.003-1.030) 03/10/21 20: Urine Protein <15 mg/dl mg/dL (Negative) 03/10/21 20:55 Urine Glucose (UA) 50 mg/dL (Negative) 03/10/21 20: Urine Ketones Neg mg/dL (Negative) 03/10/21 20:55 Urine Blood Neg (Negative) 03/10/21 20:55 Urine Nitrite Neg (Negative) 03/10/21 20:55 Urine Bilirubin Neg (Negative) 03/10/21 20:55 Urine Urobilinogen < 2.0 mg/dL (<2.0) 03/10/21 20:55 Ur Leukocyte Esterase Tr (Negative) 03/10/21 20:55 Urine WBC (Auto) 1.0 /HPF (0.0-6.0) 03/10/21 20:55 Urine RBC (Auto) < 1.0 /HPF (0.0-6.0) 03/10/21 20:55 U Epithel Cells (Auto) 5.0 /HPF (0-13.0) 03/10/21 20:55 Urine Bacteria (Auto) 1+ /HPF (Negative) 03/10/21 20:55 Dhaliwal/IV: Voiding Method Toilet Active Medications - Current Medications Current Medications: Generic Name Dose Route Start Last Admin Trade Name Freq PRN Reason Stop Dose Admin Acetaminophen 650 mg 03/11/21 18:00 Acetaminophen 325 Mg Tab PO Q4H PRN Pain MILD(1-3)/Fever >100.5/CROOK Sodium Chloride 1,000 mls @ 75 mls/hr 03/11/21 23:45 03/11/21 23:50 Nacl 0.9% 1000 Ml IV 75 mls/hr DIRECT ADEBAYO Administration Insulin Human Lispro 0 unit 03/12/21 00:00 03/12/21 06:38 Insulin Lispro 100 Unit/Ml SUB-Q Not Given Q6HR [facility] Protocol Ondansetron HCl 4 mg 03/11/21 18:00 03/12/21 04:22 Ondansetron 4 Mg/2 Ml Inj IV 4 mg Q8H PRN Administration Nausea And Vomiting Sodium Chloride 10 ml 03/11/21 22:00 03/11/21 23:45 Sodium Chloride 0.9% 10 Ml Flush Syringe IV 10 ml BID ADEBAYO Administration Sodium Chloride 10 ml 03/11/21 18:00 Sodium Chloride 0.9% 10 Ml Flush Syringe IV PRN PRN LINE FLUSH
[2021-03-12] MEDS ORDERED: BACILLUS COAGULANS PO SCH (10:00)
[2021-03-12] MEDS ORDERED: ALBUTEROL 8.5 GM MDI INHALATION IH SCH (10:00)
[2021-03-12] MEDS ORDERED: NON-FORMULARY EACH (Pantoprazole Sodium [Protonix] 40 MG Granpkt.Dr) PO SCH (10:00)
[2021-03-12] MEDS: INSULIN GLARGINE 100 UNITS/ML SUB-Q SCH (10:00)
[2021-03-12] MEDS: SODIUM CHLORIDE 0.9% 1000 ML 1,000 ML IV SCH ×2 (10:17→23:19)
--- NOTE | 2021-03-12 11:53 | Electrocardiograph Report ---
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
[2021-03-12] MEDS ORDERED: ALBUTEROL 2.5 MG/3 ML NEBU IH PRN (12:00)
--- NOTE | 2021-03-12 12:02 | Electrocardiograph Report ---
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
[2021-03-12] MEDS: ALBUTEROL 2.5 MG/3 ML NEBU IH SCH ×2 (12:06→20:40)
[2021-03-12] MEDS: METOCLOPRAMIDE 10 MG TAB PO SCH ×3 (12:11→23:19)
[2021-03-12] MEDS: tiZANidine TAB 4 MG TAB PO SCH ×2 (12:12→23:19)
[2021-03-12] MEDS: amLODIPine 5 MG TAB PO SCH (12:12)
[2021-03-12] MEDS: PANTOPRAZOLE 40 MG TAB PO SCH (12:12)
[2021-03-12] MEDS: LACTOBACILLUS RHAMNOSUS GG 1 EACH CAP PO SCH (12:47)
[2021-03-12] MEDS: GABAPENTIN 400 MG CAP PO SCH (17:49)
[2021-03-12] MEDS ORDERED: NON-FORMULARY EACH (Gabapentin [Neurontin] 600 MG Tablet) PO SCH (18:00)
[2021-03-13] MEDS: INSULIN LISPRO 100 UNIT/ML SUB-Q SCH ×7 (02:01→22:05)
[2021-03-13] MEDS: ALBUTEROL 2.5 MG/3 ML NEBU IH SCH ×3 (03:06→20:09)
[2021-03-13] MEDS: SODIUM CHLORIDE 0.9% 1000 ML 1,000 ML IV SCH (06:55)
[2021-03-13] MEDS: PANTOPRAZOLE 40 MG TAB PO SCH (09:36)
[2021-03-13] MEDS: tiZANidine TAB 4 MG TAB PO SCH ×2 (09:36→21:27)
[2021-03-13] MEDS: METOCLOPRAMIDE 10 MG TAB PO SCH ×4 (09:36→21:27)
[2021-03-13] MEDS: LACTOBACILLUS RHAMNOSUS GG 1 EACH CAP PO SCH (09:37)
[2021-03-13] MEDS: INSULIN GLARGINE 100 UNITS/ML SUB-Q SCH (09:37)
[2021-03-13] MEDS: amLODIPine 5 MG TAB PO SCH (09:37)
--- NOTE | 2021-03-13 10:59 | Consultation ---
History of Present Illness Consult date: 03/13/21 Requesting physician: ZEYNEP LEE Consult reason: chest pain History of present illness: Pt is a 66-year-old female with a past medical hx of chronic respiratory failure (on 3L home O2), asthma, COPD, BRENDA/OHS, HTN, HLD, DM2, GERD, and erosive esophagitis/gastritis, who presents s/p esophageal dilation approximately 3 weeks ago, now with complaints of SOB/RAHMAN since the procedure. She states she cannot walk more than a few steps without severe dyspnea, whereas she could previously walk down her driveway and back without any respiratory distress. Pt also reports orthopnea. She has significant edema in her lower extremities and abdomen as well. In addition, pt reports epigastric pressure radiating up her neck after eating, stating "I feel like my throat is closing up. I can't swallow food." She also describes a constant aching pain around the upper left border of her chest wall radiating to her shoulder for several weeks. Pain is worse with certain positions and is reproducible via palpation. Trop neg x 1. ECG reveals SR, no acute ischemic changes. No previous echo available for review. Lexiscan stress MPI 08/2020 - negative for ischemia, EF 50-70%. LHC 12/2018 - mild ostial diag stenosis, otherwise normal coronaries, normal LV systolic fxn. Past History Past Medical History: arthritis, COPD, diabetes, hypertension, hyperlipidemia, other (asthma) Past Surgical History: hernia repair, total knee replacement. denies: valve replacement, CABG, PTCA Social history: . denies: smoking, alcohol abuse Family history: diabetes, hypertension Medications and Allergies Allergies Allergy/AdvReac Type Severity Reaction Status Date / Time No Known Allergies Allergy Verified 02/20/21 08:53 Home Medications Medication Instructions Recorded Confirmed Last Taken Type Albuterol Sulfate [Proventil Hfa] 6.7 gm IH BID 03/11/21 03/11/21 Unknown His tory Bacillus Coagulans [Probiotic] 2 each PO QDAY 03/11/21 03/11/21 Unknown History Gabapentin [Neurontin] 1,200 mg PO QPM 03/11/21 03/11/21 Unknown History Insulin Glargine [Lantus VIAL] 52 units SUB-Q QAM 03/11/21 03/11/21 Unknown History Lispro Insulin [HumaLOG] 15 unit SQ TID 03/11/21 03/11/21 Unknown History Metoclopramide [Reglan] 10 mg PO ACHS 03/11/21 03/11/21 Unknown History Pantoprazole Sodium [Protonix] 40 mg PO QDAY 03/11/21 03/11/21 Unknown History Pioglitazone HCl [Actos] 30 mg PO QDAY 03/11/21 03/11/21 Unknown History amLODIPine [Norvasc] 5 mg PO DAILY 03/11/21 03/11/21 Unknown History tiZANidine [Zanaflex 4mg TAB] 4 mg PO BID 03/11/21 03/11/21 Unknown History Active Meds: Active Medications Acetaminophen (Acetaminophen 325 Mg Tab) 650 mg PO Q4H PRN PRN Reason: Pain MILD(1-3)/Fever >100.5/CROOK Albuterol (Albuterol 2.5 Mg/3 Ml Nebu) 2.5 mg IH Q4HRT PRN PRN Reason: Shortness Of Breath Albuterol (Albuterol 2.5 Mg/3 Ml Nebu) 2.5 mg IH BIDRT [facility] Amlodipine Besylate (Amlodipine 5 Mg Tab) 5 mg PO DAILY [facility] Last Admin: 03/13/21 09:37 Dose: 5 mg Documented by: Gabapentin (Gabapentin 400 Mg Cap) 1,200 mg PO QPM [facility] Last Admin: 03/12/21 17:49 Dose: 1,200 mg Documented by: Sodium Chloride (Nacl 0.9% 1000 Ml) 1,000 mls @ 75 mls/hr IV DIRECT [facility] Last Admin: 03/13/21 06:55 Dose: 75 mls/hr Documented by: Insulin Glargine (Insulin Glargine 100 Units/Ml) 52 units SUB-Q QAM [facility] Last Admin: 03/13/21 09:37 Dose: 52 units Documented by: Insulin Human Lispro (Insulin Lispro 100 Unit/Ml) 0 unit SUB-Q Q6HR [facility]; Protocol Last Admin: 03/13/21 06:01 Dose: 3 unit Documented by: Insulin Human Lispro (Insulin Lispro 100 Unit/Ml) 5 unit SUB-Q TID [facility] Last Admin: 03/13/21 09:38 Dose: 5 unit Documented by: Lactobacillus Rhamnosus (Lactobacillus Rhamnosus Gg 1 Each Cap) 2 each PO DAILY [facility] Last Admin: 03/13/21 09:37 Dose: 2 each Documented by: Methylprednisolone Sodium Succinate (Methylprednisolone Sod Succinate 40 Mg/1 Ml Inj) 40 mg IV Q8HR [facility] Metoclopramide HCl (Metoclopramide 10 Mg Tab) 10 mg PO ACHS [facility] Last Admin: 03/13/21 09:36 Dose: 10 mg Documented by: Ondansetron HCl (Ondansetron 4 Mg/2 Ml Inj) 4 mg IV Q8H PRN PRN Reason: Nausea And Vomiting Last Admin: 03/12/21 04:22 Dose: 4 mg Documented by: Pantoprazole Sodium (Pantoprazole 40 Mg Tab) 40 mg PO DAILY [facility] Last Admin: 03/13/21 09:36 Dose: 40 mg Documented by: Sodium Chloride (Sodium Chloride 0.9% 10 Ml Flush Syringe) 10 ml IV BID [facility] Last Admin: 03/13/21 09:42 Dose: 10 ml Documented by: Sodium Chloride (Sodium Chloride 0.9% 10 Ml Flush Syringe) 10 ml IV PRN PRN PRN Reason: LINE FLUSH Tizanidine HCl (Tizanidine Tab 4 Mg Tab) 4 mg PO BID [facility] Last Admin: 03/13/21 09:36 Dose: 4 mg Documented by: Review of Systems Constitutional: no fever, no chills, no sweats Ears, nose, mouth and throat: no nasal congestion, no sore throat Cardiovascular: orthopnea, edema, shortness of breath, dyspnea on exertion, no chest pain, no palpitations, no rapid/irregular heart beat, no syncope, no lightheadedness Respiratory: shortness of breath, dyspnea on exertion, no cough Gastrointestinal: diarrhea (approx 1 week ago, now resolved), no abdominal pain, no nausea, no vomiting, no constipation Genitourinary Female: no pelvic pain, no flank pain, no dysuria Musculoskeletal: myalgias (BLE), no neck stiffness, no neck pain Integumentary: no rash, no wounds Neurological: weakness (chronic BLE), no head injury, no paralysis, no parathesias, no numbness, no tingling, no seizures, no syncope, no vertigo, no headaches Psychiatric: anxiety Endocrine: cold intolerance, no heat intolerance, no polydipsia, no polyuria Hematologic/Lymphatic: no easy bruising, no easy bleeding Allergic/Immunologic: no anaphylaxis Physical Examination Last Vital Signs Temp 97.5 F L 03/13/21 03:57 Pulse 71 03/13/21 07:36 Resp 18 03/13/21 07:36 BP 113/53 03/13/21 03:57 Pulse Ox 99 03/13/21 07:36 General appearance: no acute distress HEENT: Positive: EOMI, Normocephaly, Mucus Membranes Moist Neck: Positive: neck supple, trachea midline. Negative: JVD/HJR Cardiac: Positive: Reg Rate and Rhythm, S1/S2 Lungs: Positive: Decreased Breath Sounds (bilaterally) Neuro: Positive: Grossly Intact Abdomen: Positive: Firm. Negative: Tender Skin: Negative: Rash Musculoskeletal: Normal Range of Motion Extremities: Present: upper extr. pulses, lower extr. pulses, +1 Edema (BLE) Results 03/10/21 20:39 03/11/21 15:24 - Imaging and Cardiology Echo: pending Cardiac cath: report reviewed (12/2018 - mild ostial diag stenosis, otherwise normal coronaries, normal LV systolic fxn) EKG: report reviewed, image reviewed - EKG Interpretation EKG: no acute changes EKG interpretations - EKG Sinus rhythms and dysrhythmias: sinus rhythm QRS axis and voltage: left axis deviation Assessment and Plan Obtain echo. Recommend discontinuation of IV fluids. Closely monitor volume status. Will optimize antihypertensive regimen. Pt seen in conjunction with Dr. Silver Castro, who agrees with the assessment and plan of care. - Patient Problems (1) Dysphagia Current Visit: Yes Status: Acute Qualifiers: Dysphagia type: unspecified Qualified Code(s): R13.10 - Dysphagia, unspecified Plan to address problem: S/p esophageal dilation (2) Chronic respiratory failure Current Visit: Yes Status: Chronic Qualifiers: Respiratory failure complication: hypoxia Qualified Code(s): J96.11 - Chronic respiratory failure with hypoxia (3) Asthma Current Visit: Yes Status: Chronic (4) COPD (chronic obstructive pulmonary disease) Current Visit: Yes Status: Chronic (5) Obstructive sleep apnea Current Visit: Yes Status: Chronic (6) Obesity hypoventilation syndrome Current Visit: Yes Status: Chronic (7) Atypical chest pain Current Visit: Yes Status: Acute (8) Elevated d-dimer Current Visit: Yes Status: Acute Plan to address problem: -Chest CTA neg for PE -BLE Dopplers neg for DVT (9) Lymphadenopathy Current Visit: Yes Status: Chronic (10) Hypertension Current Visit: Yes Status: Chronic Qualifiers: Hypertension type: essential hypertension Qualified Code(s): I10 - Essential (primary) hypertension (11) Hyperlipidemia Current Visit: Yes Status: Chronic Qualifiers: Hyperlipidemia type: mixed hyperlipidemia Qualified Code(s): E78.2 - Mixed hyperlipidemia (12) Type 2 diabetes mellitus Current Visit: Yes Status: Chronic Qualifiers: 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
[2021-03-13] MEDS: methylPREDNISolone Sod Succinate 40 MG/1 ML INJ IV SCH ×2 (13:00→21:28)
[2021-03-13] MEDS: ACETAMINOPHEN 325 MG TAB PO PRN ×2 (13:37→20:18)
[2021-03-13] MEDS ORDERED: FUROSEMIDE 40 MG/4 ML INJ IV NR ×2 (13:45→19:02)
--- NOTE | 2021-03-13 14:28 | Consultation ---
History of Present Illness - Reason for Consult Consult date: 03/13/21 Dysphagia - History of Present Illness 66 year old obese,white female with a h/o Diabetes Mellitus (type 2). Hypertension,CAD (s/p stent placement), COPD. Asthma had an EGD and dilation done over a weeks back. She had presented to the Hospital with dyspnea. Patient's Radiologic evaluation has not shown any evidence of Pulmonary Embolus; patient has tested negative for COVID 19. CT scan of the abdomen and pelvis has shown evidence of a Fatty liver, and moderately, severe, sigmoid diverticulosis and uterine fibroids. Patient has been statrtedon steroids and lasix and is having an Echocardiogram done to assess for her Cardiac function. Continue with present empiric treatment from a GI standpoint. Patient is on Reglan and continue treatment with PPI. 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 Past History Past Medical History: arthritis, COPD, diabetes, hypertension, hyperlipidemia, other (asthma) Past Surgical History: hernia repair, total knee replacement. denies: valve replacement, CABG, PTCA Social history: . denies: smoking, alcohol abuse Family history: diabetes, hypertension Medications and Allergies Allergies Allergy/AdvReac Type Severity Reaction Status Date / Time No Known Allergies Allergy Verified 02/20/21 08:53 Home Medications Medication Instructions Recorded Confirmed Last Taken Type Albuterol Sulfate [Proventil Hfa] 6.7 gm IH BID 03/11/21 03/11/21 Unknown History Bacillus Coagulans [Probiotic] 2 each PO QDAY 03/11/21 03/11/21 Unknown History Gabapentin [Neurontin] 1,200 mg PO QPM 03/11/21 03/11/21 Unknown History Insulin Glargine [Lantus VIAL] 52 units SUB-Q QAM 03/11/21 03/11/21 Unknown History Lispro Insulin [HumaLOG] 15 unit SQ TID 03/11/21 03/11/21 Unknown History Metoclopramide [Reglan] 10 mg PO ACHS 03/11/21 03/11/21 Unknown History Pantoprazole Sodium [Protonix] 40 mg PO QDAY 03/11/21 03/11/21 Unknown History Pioglitazone HCl [Actos] 30 mg PO QDAY 03/11/21 03/11/21 Unknown History amLODIPine [Norvasc] 5 mg PO DAILY 03/11/21 03/11/21 Unknown History tiZANidine [Zanaflex 4mg TAB] 4 mg PO BID 03/11/21 03/11/21 Unknown History Active Meds: Active Medications Acetaminophen (Acetaminophen 325 Mg Tab) 650 mg PO Q4H PRN PRN Reason: Pain MILD(1-3)/Fever >100.5/CROOK Last Admin: 03/13/21 13:37 Dose: 650 mg Documented by: Albuterol (Albuterol 2.5 Mg/3 Ml Nebu) 2.5 mg IH Q4HRT PRN PRN Reason: Shortness Of Breath Albuterol (Albuterol 2.5 Mg/3 Ml Nebu) 2.5 mg IH BIDRT ADE[facility]YO Furosemide (Furosemide 40 Mg/4 Ml Inj) 40 mg IV ONCE NR Stop: 03/13/21 18:00 Gabapentin (Gabapentin 400 Mg Cap) 1,200 mg PO QPM [facility] Last Admin: 03/12/21 17:49 Dose: 1,200 mg Documented by: Insulin Glargine (Insulin Glargine 100 Units/Ml) 52 units SUB-Q QAM [facility] Last Admin: 03/13/21 09:37 Dose: 52 units Documented by: Insulin Human Lispro (Insulin Lispro 100 Unit/Ml) 0 unit SUB-Q Q6HR [facility]; Protocol Last Admin: 03/13/21 13:01 Dose: Not Given Documented by: Insulin Human Lispro (Insulin Lispro 100 Unit/Ml) 5 unit SUB-Q TID [facility] Last Admin: 03/13/21 09:38 Dose: 5 unit Documented by: Lactobacillus Rhamnosus (Lactobacillus Rhamnosus Gg 1 Each Cap) 2 each PO DAILY [facility] Last Admin: 03/13/21 09:37 Dose: 2 each Documented by: Lisinopril (Lisinopril 5 Mg Tab) 5 mg PO QDAY [facility] Methylprednisolone Sodium Succinate (Methylprednisolone Sod Succinate 40 Mg/1 Ml Inj) 40 mg IV Q8HR [facility] Last Admin: 03/13/21 13:00 Dose: 40 mg Documented by: Metoclopramide HCl (Metoclopramide 10 Mg Tab) 10 mg PO ACHS [facility] Last Admin: 03/13/21 13:00 Dose: 10 mg Documented by: Ondansetron HCl (Ondansetron 4 Mg/2 Ml Inj) 4 mg IV Q8H PRN PRN Reason: Nausea And Vomiting Last Admin: 03/12/21 04:22 Dose: 4 mg Documented by: Pantoprazole Sodium (Pantoprazole 40 Mg Tab) 40 mg PO DAILY [facility] Last Admin: 03/13/21 09:36 Dose: 40 mg Documented by: Sodium Chloride (Sodium Chloride 0.9% 10 Ml Flush Syringe) 10 ml IV BID [facility] Last Admin: 03/13/21 09:42 Dose: 10 ml Documented by: Sodium Chloride (Sodium Chloride 0.9% 10 Ml Flush Syringe) 10 ml IV PRN PRN PRN Reason: LINE FLUSH Tizanidine HCl (Tizanidine Tab 4 Mg Tab) 4 mg PO BID [facility] Last Admin: 03/13/21 09:36 Dose: 4 mg Documented by: Exam - Constitutional Vitals: Temp Pulse Resp BP Pulse Ox 97.5 F L 71 18 113/53 99 03/13/21 03:57 03/13/21 07:36 03/13/21 07:36 03/13/21 03:57 03/13/21 07:36 Results - Labs CBC & Chem 7: 03/10/21 20:39 03/11/21 15:24 Labs: Abnormal lab results 03/12/21 03/12/21 03/13/21 Range/Units 16:32 21:17 05:32 POC Glucose 260 H 161 H 260 H (70-105) mg/dL 03/13/21 Range/Units 07:57 POC Glucose 246 H (70-105) mg/dL
[2021-03-13] MEDS ORDERED: FUROSEMIDE 40 MG/4 ML INJ IV SCH ×2 (18:00)
[2021-03-13] MEDS ORDERED: FUROSEMIDE 20 MG/2 ML INJ IV SCH (18:00)
[2021-03-13] MEDS: GABAPENTIN 400 MG CAP PO SCH (18:12)
--- NOTE | 2021-03-13 19:08 | Progress Note ---
Assessment and Plan Assessment and plan: 66 YO Female with Obesity Hypoventilation Syndrome, HTN, DM, OA, Asthma, COPD, Chronic Respiratory Failure on 2L Home Oxygen, Dysphagia S/P Esophageal Dilitation presents to ED for evaluation. Patient reports "it hurts when I swallow". Patient states that she has experienced pain upon swallowing which be farida 3 days after esophageal dilatation. Patient states the pain is 3/10, intermittent, associated with swallowing, and has been persistent over the past 2 weeks. EMS was notified and upon arrival the patient was found to be in distress and subsequently transported to [facility] for further care and evaluation of the aforementioned symptoms. The patient was seen and evaluated in the emergency department. All lab and imaging studies reviewed. Patient found to have symptoms consistent with odynophagia resulting in atypical chest pain. Patient placed in observation status and admitted to medical floor for further care and evaluation. GI team consulted in ED. Patient denies fever, chills, chest pain, palpitations, productive cough, skin rash, recent ill contacts, or known exposure to COVID-19. Prior admission on 03/31/2017 reviewed. All medication listed at time of admission has been reconciled. Advanced care planning conducted in ED. 03/12: Patient reported diarrhea this morningwe will check C. difficile colitis although I think this is less likely there is no abdominal pain and no fever. Awaiting Covid testing patient is chronically on oxygen 3 L at home as opposed to 2 days listed above from admission. She says that her odynophagia has not improved since the dilatation so will await GI evaluation as she is still unable to keep p.o. down. Imaging studies reviewed and noted lymphadenopathy is discussed with the patient this will need closer monitoring and evaluation I also recommended an outpatient hematology evaluation and referral has been put in for discharge planning. We will continue pain control for muscle wall pain likely underlying costochondritis although she denies any fall or trauma to the site she also denies any persistent cough. Home medication reconciliation done to the best of my knowledge we will continue to monitor her blood sugar considering her history of diabetes 03/13: Still with shortness of breath and chest pain, GI input noted. cardiology and Pulmonary consulted. started on steroids, will adjust insulin for better blood glucose control. (1) Odynophagia Current Visit: Yes Status: Acute Plan to address problem: Carafate p.o. twice daily, PPI therapy, GI team consulted in ED. Supportive care. CT neck, CT scan chest, CT scan abdomen and pelvis further care and evaluation as per GI team. (2) Obesity hypoventilation syndrome Current Visit: Yes Status: Acute Plan to address problem: Balanced diet, increase physical activity at discharge, pulmonary follow-up for sleep study, outpatient bariatric surgery follow-up. (3) Hypertension Current Visit: Yes Status: Acute Qualifiers: Hypertension type: essential hypertension Qualified Code(s): I10 - Essential (primary) hypertension Plan to address problem: Monitor blood pressure every shift, continue medical management (4) Chronic respiratory failure Current Visit: Yes Status: Acute Qualifiers: Respiratory failure complication: hypoxia Qualified Code(s): J96.11 - Chronic respiratory failure with hypoxia Plan to address problem: Supplemental oxygen via nasal cannula, pulse oximetry, supportive care. (5) Diabetes mellitus (6) Lymphadenopathy (7) DVT prophylaxis Current Visit: Yes Status: Acute Plan to address problem: SCDs bilateral lower extremities while in bed, patient is ambulatory (8) Advance care planning Current Visit: Yes Status: Acute Plan to address problem: Disease education conducted, care plan discussed, diagnoses discussed, patient is full code. Patient knowledges understanding and agreement with care plan, +30 minutes. History Interval history: Patient seen and examined this morning reports persistent left-sided muscle wall tenderness and shortness of breath. still with chest pain Hospitalist Physical - Physical exam Narrative exam: General appearance: Present: mild distress, Morbid obese - EENT Eyes: Present: PERRL ENT: hearing intact, clear oral mucosa - Neck Neck: Present: supple, normal ROM - Respiratory Respiratory effort: normal Respiratory: bilateral: CTA - Cardiovascular Heart Sounds: Present: S1 & S2. Absent: rub, click - Extremities Extremities: pulses symmetrical, No edema Peripheral Pulses: within normal limits - Abdominal General gastrointestinal: Present: soft, non-tender, non-distended, normal bowel sounds Female genitourinary: Present: normal - Integumentary Integumentary: Present:see nursing documentation - Musculoskeletal Musculoskeletal: gait normal, strength equal bilaterally - Psychiatric Psychiatric: appropriate mood/affect, intact judgment & insight - Neurologic Neurologic: CNII-XII intact, moves all extremities - Constitutional Vitals: Temp Pulse Resp BP Pulse Ox 98.2 F 66 20 117/54 99 03/13/21 11:46 03/13/21 11:46 03/13/21 14:00 03/13/21 11:46 03/13/21 11:46 General appearance: Present: no acute distress HEART Score - HEART Score EKG: Non-specific Age: > 65 Risk factors: > 3 risk factors or hx of atherosclerotic disease Troponin: Troponin T < 0.010 ng/mL (0.00-0.029) 03/13/21 15:18 Troponin: 1-3x normal limit - Critical Actions Critical Actions: 4-6 pts:12-16.6% risk of adverse cardiac event. Should be adm itted Results - Labs CBC & Chem 7: 03/10/21 20:39 03/11/21 15:24 Labs: Laboratory Last Values WBC 6.4 K/mm3 (4.5-11.0) 03/10/21 20:39 RBC 4.39 M/mm3 (3.65-5.03) 03/10/21 20:39 Hgb 12.8 gm/dl (10.1-14.3) 03/10/21 20:39 Hct 37.1 % (30.3-42.9) 03/10/21 20:39 MCV 85 fl (79-97) 03/10/21 20:39 MCH 29 pg (28-32) 03/10/21 20:39 MCHC 34 % (30-34) 03/10/21 20:39 RDW 14.5 % (13.2-15.2) 03/10/21 20:39 Plt Count 220 K/mm3 (140-440) 03/10/21 20:39 Lymph % (Auto) 29.1 % (13.4-35.0) 03/10/21 20:39 Kaufman % (Auto) 5.5 % (0.0-7.3) 03/10/21 20:39 Eos % (Auto) 2.7 % (0.0-4.3) 03/10/21 20:39 Baso % (Auto) 0.5 % (0.0-1.8) 03/10/21 20:39 Lymph # (Auto) 1.9 K/mm3 (1.2-5.4) 03/10/21 20:39 Kaufman # (Auto) 0.3 K/mm3 (0.0-0.8) 03/10/21 20:39 Eos # (Auto) 0.2 K/mm3 (0.0-0.4) 03/10/21 20:39 Baso # (Auto) 0.0 K/mm3 (0.0-0.1) 03/10/21 20:39 Seg Neutrophils % 62.2 % (40.0-70.0) 03/10/21 20:39 Seg Neutrophils # 4.0 K/mm3 (1.8-7.7) 03/10/21 20:39 D-Dimer 404.66 ng/mlDDU (0-234) H 03/11/21 15:24 Sodium 139 mmol/L (137-145) 03/10/21 20:38 Potassium 3.6 mmol/L (3.6-5.0) 03/10/21 20:38 Chloride 99.9 mmol/L (98-107) 03/10/21 20:38 Carbon Dioxide 28 mmol/L (22-30) 03/10/21 20:38 Anion Gap 15 mmol/L 03/10/21 20:38 BUN 5 mg/dL (7-17) L 03/10/21 20:38 Creatinine 0.6 mg/dL (0.6-1.2) 03/10/21 20:38 Estimated GFR > 60 ml/min 03/10/21 20:38 BUN/Creatinine Ratio 8 % 03/10/21 20:38 Glucose 242 mg/dL (65-100) H 03/11/21 15:24 POC Glucose 196 mg/dL (70-105) H 03/13/21 12:56 Calcium 9.0 mg/dL (8.4-10.2) 03/10/21 20:38 Ferritin 50.3 ng/mL (10.0-200.0) 03/11/21 15:24 Total Bilirubin 0.30 mg/dL (0.1-1.2) 03/10/21 20:38 AST 33 units/L (5-40) 03/10/21 20:38 ALT 38 units/L (7-56) 03/10/21 20:38 Alkaline Phosphatase 106 units/L (35-129) 03/10/21 20:38 Lactate Dehydrogenase 237 units/L (91-180) H 03/11/21 15:24 Troponin T < 0.010 ng/mL (0.00-0.029) 03/13/21 15:18 C-Reactive Protein 0.80 mg/dL (0.00-1.30) 03/11/21 15:24 NT-Pro-B Natriuret Pep 199.5 pg/mL (0-900) 03/10/21 20:38 Total Protein 7.4 g/dL (6.3-8.2) 03/10/21 20: Albumin 3.8 g/dL (3.9-5) L 03/10/21 20: Albumin/Globulin Ratio 1.1 % 03/10/21 20:38 Procalcitonin < 0.05 ng/mL (<0.15) 03/11/21 15:24 Urine Color Yellow (Yellow) 03/10/21 20:55 Urine Turbidity Slightly-cloudy (Clear) 03/10/21 20: Urine pH 6.0 (5.0-7.0) 03/10/21 20:55 Ur Specific [place] 1.006 (1.003-1.030) 03/10/21 20: Urine Protein <15 mg/dl mg/dL (Negative) 03/10/21 20:55 Urine Glucose (UA) 50 mg/dL (Negative) 03/10/21 20:55 Urine Ketones Neg mg/dL (Negative) 03/10/21 20:55 Urine Blood Neg (Negative) 03/10/21 20: Urine Nitrite Neg (Negative) 03/10/21 20:55 Urine Bilirubin Neg (Negative) 03/10/21 20: Urine Urobilinogen < 2.0 mg/dL (<2.0) 03/10/21 20:55 Ur Leukocyte Esterase Tr (Negative) 03/10/21 20:55 Urine WBC (Auto) 1.0 /HPF (0.0-6.0) 03/10/21 20:55 Urine RBC (Auto) < 1.0 /HPF (0.0-6.0) 03/10/21 20:55 U Epithel Cells (Auto) 5.0 /HPF (0-13.0) 03/10/21 20:55 Urine Bacteria (Auto) 1+ /HPF (Negative) 03/10/21 20:55 Coronavirus (PCR) Negative (Negative) 03/11/21 10:10 Dhaliwal/IV: Voiding Method Toilet Active Medications - Current Medications Current Medications: Generic Name Dose Route Start Last Admin Trade Name Freq PRN Reason Stop Dose Admin Acetaminophen 650 mg 03/11/21 18:00 03/13/21 13:37 Acetaminophen 325 Mg Tab PO 650 mg Q4H PRN Administration Pain MILD(1-3)/Fever >100.5/CROOK Albuterol 2.5 mg 03/12/21 12:00 Albuterol 2.5 Mg/3 Ml Nebu IH Q4HRT PRN Shortness Of Breath Albuterol 2.5 mg 03/13/21 20:00 Albuterol 2.5 Mg/3 Ml Nebu IH BIDRT ADEBAYO Furosemide 40 mg 03/13/21 19:02 Furosemide 40 Mg/4 Ml Inj IV 03/13/21 19:03 ONCE ONE Gabapentin 1,200 mg 03/12/21 18:00 03/13/21 18:12 Gabapentin 400 Mg Cap PO 1,200 mg QPM ADEBAYO Administration Insulin Glargine 52 units 03/12/21 10:00 03/13/21 09:37 Insulin Glargine 100 Units/Ml SUB-Q 52 units QAM ADEBAYO Administration Insulin Human Lispro 0 unit 03/13/21 22:00 Insulin Lispro 100 Unit/Ml SUB-Q ACHS [facility] Protocol Lactobacillus Rhamnosus 2 each 03/12/21 13:00 03/13/21 09:37 Lactobacillus Rhamnosus Gg 1 Each Cap PO 2 each DAILY ADEBAYO Administration Lisinopril 5 mg 03/14/21 10:00 Lisinopril 5 Mg Tab PO QDAY ADE[facility] Methylprednisolone Sodium Succinate 40 mg 03/13/21 14:00 03/13/21 13:00 Methylprednisolone Sod Succinate 40 Mg/1 Ml Inj IV 40 mg Q8HR ADEBAYO Administration Metoclopramide HCl 10 mg 03/12/21 11:30 03/13/21 16:02 Metoclopramide 10 Mg Tab PO 10 mg ACHS ADE[facility] Administration Ondansetron HCl 4 mg 03/11/21 18:00 03/12/21 04:22 Ondansetron 4 Mg/2 Ml Inj IV 4 mg Q8H PRN Administration Nausea And Vomiting Pantoprazole Sodium 40 mg 03/12/21 10:00 03/13/21 09:36 Pantoprazole 40 Mg Tab PO 40 mg DAILY ADE[facility] Administration Sodium Chloride 10 ml 03/11/21 22:00 03/13/21 09:42 Sodium Chloride 0.9% 10 Ml Flush Syringe IV 10 ml BID ADE[facility]YO Administration Sodium Chloride 10 ml 03/11/21 18:00 Sodium Chloride 0.9% 10 Ml Flush Syringe IV PRN PRN LINE FLUSH Tizanidine HCl 4 mg 03/12/21 10:00 03/13/21 09:36 Tizanidine Tab 4 Mg Tab PO 4 mg BID ADEBAYO Administration Nutrition/Malnutrition Assess - Dietary Evaluation Nutrition/Malnutrition Findings: Nutrition Notes Start: 03/12/21 09:51 Freq: Status: Active Protocol: Document 03/12/21 09:51 AT (Rec: 03/12/21 10:02 AT [id number]) Co-Sign 03/12/21 09:51 MK Nutrition Notes Need for Assessment 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 Pt reports that her last meal was Tuesday at 2:30 pm. Pt states that she feels nauseous as a result of not eating. Pt reports extreme hunger. Pt states that after her procedure two weeks ago to dilate her esohagus foods and beverages have gone down without issue. Bank Advisor spoke with RN about POC and RN stated that pt was being seen by CORPORATION OFFICER at that time. Bank Advisor anticipates diet advancement per CORPORATION OFFICER recommendations today. Percent of energy/protein needs met: 0%/0% Burn Absent Trauma Absent GI Symptoms Nausea,Diarrhea Difficulty In Swallowing Food Allergy No Usual Diet at Home Regular Current % PO Negligible Minimum of two criteria No physical signs of malnutrition #1 Nutrition Diagnosis Swallowing difficulty Etiology odynbophagia, dysphagia As Evidenced by Signs and Symptoms need for esophageal dilitation , need for CORPORATION OFFICER consult Is patient on ventilator? No Is Patient Ambulatory and/or Out of Bed Yes REE-([place]-St. Jeor-ambulatory/OOB) [ 2426.736 NUTR.[id number]] Kcal/Kg value to use for calculation 12 Approximate Energy Requirements Using 1692 kcal/Kg Calculation Used for Recommendations Kcal/kg Additional Notes PRO needs: 93-112g (1-1.2g/kg AdBW 93 kg) Fluid needs: 1 mL/kcal or per MD Nutrition Intervention Change Diet Order: Advance diet per CORPORATION OFFICER recommendation Goal #1 Diet advancement Goal #2 PO tolerance Anticipated Discharge Needs: Unable to determine at this time Follow-Up By: 03/16/21 Additional Comments F/U for diet advancement
--- NOTE | 2021-03-14 01:49 | Consultation ---
DATE OF CONSULTATION: 03/13/2021 HISTORY OF PRESENT ILLNESS: This is a 66-year-old obese white female with an underlying history of hypertension, diabetes mellitus type 2, coronary artery disease status post stent placement. She had an EGD with dilation done possibly one and a half weeks earlier and subsequently has been able to eat her food, but she says that she still has difficulty with swallowing. She has some shortness of breath, which had prompted her to come to the hospital. She had evaluation CT scan done to check for pulmonary embolus, which was negative. CT scan of the abdomen and pelvis showed presence of uterine fibroids, fatty liver, diverticulosis involving the sigmoid, but no other significant pathology. She has an underlying history of COPD and asthma part of her breath and shortness of breath may be secondary to that. She has since been placed on steroids and also on Lasix. She is having an echocardiogram for further evaluation. PHYSICAL EXAMINATION: GENERAL: Noted to have vital stable. NECK: Shows no JVD. LUNGS: Shows reduced breath sounds. CARDIOVASCULAR: Normal. ABDOMEN: Soft. Bowel sounds present. She has a fatty liver as per CT scan. NEUROLOGIC: She is alert and oriented. She is having an echocardiogram for further evaluation of her cardiac function. ASSESSMENT: Dyspnea, possibly secondary to her chronic obstructive pulmonary disease and asthma, history of coronary artery disease, hypertension, history of status post stent placement, diabetes mellitus type 2, esophageal stenosis, status post esophageal dilation. PLAN: To continue with present empiric treatment from a GI standpoint, possibly try and optimize pulmonary and cardiac function with possible improvement of her symptoms. TID: [id number] RECEIPT: [id number] RICH
[2021-03-14] MEDS: ONDANSETRON 4 MG/2 ML INJ IV PRN (03:31)
[2021-03-14] MEDS: methylPREDNISolone Sod Succinate 40 MG/1 ML INJ IV SCH (05:44)
[2021-03-14 06:18] LABS: Hematocrit 35.5 % (30.3-42.9); Mean Corpuscular HGB Conc 34 % (30-34); Mean Corpuscular Volume 85 fl (79-97); Platelet Count 174 K/mm3 (140-440); Red Blood Count 4.19 M/mm3 (3.65-5.03); Red Cell Distribution Width 14.1 % (13.2-15.2)
[2021-03-14 06:42] LABS: BUN/Creatinine Ratio 18; Blood Urea Nitrogen 14 mg/dL (7-17); Calcium 8.7 mg/dL (8.4-10.2); Hemolysis Index 24
[2021-03-14] MEDS: ALBUTEROL 2.5 MG/3 ML NEBU IH SCH ×2 (08:04→20:05)
[2021-03-14] MEDS: INSULIN LISPRO 100 UNIT/ML SUB-Q SCH ×3 (08:35→16:42)
[2021-03-14] MEDS: METOCLOPRAMIDE 10 MG TAB PO SCH ×3 (08:35→16:43)
[2021-03-14] MEDS: ACETAMINOPHEN 325 MG TAB PO PRN (08:48)
[2021-03-14] MEDS ORDERED: INSULIN REGULAR, HUMAN 100 UNITS/1 ML SUB-Q ONE ×2 (09:05→12:00)
--- NOTE | 2021-03-14 09:39 | Progress Note ---
Subjective Date of service: 03/14/21 Interval history: Patient is in bed; no orthopnea, but does complain of dyspnea. Although patient does still complain of dysphagia ( patient had an EGD and Esophageal Dilation done recently) believe that patient's other medical condition needs to be optimized (patient has a h/o Diabetes Mellitus (type 2), CAD, Hypertension,h/o respiratory failure,asthma) prior to doing further GI procedures. Continue with empiric treatment from a GI standpoint. Patient alert and oriented and answers appropriately to questions. O/E Vitals stable, slightly tachypneic HEENT: No JVD Lungs: Reduced Breath sounds CVS: S1 and S2 Abdomen: Obese, Bowel sounds present SEARCH ENGINE MARKETING STRATEGIST: Alert and oriented A/P Dysphagia/ Dyspnea/ H/O Respiratory Failure/ CAD/ Hypertension/ Diabetes Mellitus (type 2): Continue with present empiric treatment from a GI standpoint;possibly to repeat GI procedure once thepatient's other medicalcondition has been optimized. Objective - Constitutional Vitals: Vital Signs - 12hr 03/13/21 03/14/21 03/14/21 22:00 04:45 08:00 Temperature 98.4 F Pulse Rate 67 Pulse Rate [ 74 Posterior Throughout] Respiratory 18 Rate Respiratory 18 Rate [Posterior Throughout] Blood Pressure 114/66 [Right] O2 Sat by Pulse 97 98 Oximetry - Labs CBC & Chem 7: 03/14/21 05:53 03/14/21 05:53 Labs: Abnormal lab results 03/13/21 03/13/21 03/13/21 Range/Units 07:57 11:45 12:56 Sodium (137-145) mmol/L Chloride (98-107) mmol/L Carbon Dioxide (22-30) mmol/L Glucose (65-100) mg/dL POC Glucose 246 H 233 H 196 H (70-105) mg/dL 03/13/21 03/13/21 03/13/21 Range/Units 16:18 18:01 20:56 Sodium (137-145) mmol/L Chloride (98-107) mmol/L Carbon Dioxide (22-30) mmol/L Glucose (65-100) mg/dL POC Glucose 234 H 306 H 365 H (70-105) mg/dL 03/14/21 03/14/21 Range/Units 05:53 06:03 Sodium 134 L (137-145) mmol/L Chloride 94.9 L (98-107) mmol/L Carbon Dioxide 31 H (22-30) mmol/L Glucose 342 H (65-100) mg/dL POC Glucose 343 H (70-105) mg/dL Medications & Allergies - Medications Allergies/Adverse Reactions: Allergies No Known Allergies Allergy (Verified 02/20/21 08:53) Home Medications: Home Medications Medication Instructions Recorded Confirmed Last Taken Type Albuterol Sulfate [Proventil Hfa] 6.7 gm IH BID 03/11/21 03/11/21 Unknown History Bacillus Coagulans [Probiotic] 2 each PO QDAY 03/11/21 03/11/21 Unknown History Gabapentin [Neurontin] 1,200 mg PO QPM 03/11/21 03/11/21 Unknown History Insulin Glargine [Lantus VIAL] 52 units SUB-Q QAM 03/11/21 03/11/21 Unknown History Lispro Insulin [HumaLOG] 15 unit SQ TID 03/11/21 03/11/21 Unknown History Metoclopramide [Reglan] 10 mg PO ACHS 03/11/21 03/11/21 Unknown History Pantoprazole Sodium [Protonix] 40 mg PO QDAY 03/11/21 03/11/21 Unknown History Pioglitazone HCl [Actos] 30 mg PO QDAY 03/11/21 03/11/21 Unknown History amLODIPine [Norvasc] 5 mg PO DAILY 03/11/21 03/11/21 Unknown History tiZANidine [Zanaflex 4mg TAB] 4 mg PO BID 03/11/21 03/11/21 Unknown History Active Medications: Generic Name Dose Route Start Last Admin Trade Name Sivaq PRN Reason Stop Dose Admin Acetaminophen 650 mg 03/11/21 18:00 03/14/21 08:48 Acetaminophen 325 Mg Tab PO 650 mg Q4H PRN Administration Pain MILD(1-3)/Fever >100.5/CROOK Albuterol 2.5 mg 03/12/21 12:00 Albuterol 2.5 Mg/3 Ml Nebu IH Q4HRT PRN Shortness Of Breath Albuterol 2.5 mg 03/13/21 20:00 03/14/21 08:04 Albuterol 2.5 Mg/3 Ml Nebu IH 2.5 mg BIDRT ADEBAYO Administration Gabapentin 1,200 mg 03/12/21 18:00 03/13/21 18:12 Gabapentin 400 Mg Cap PO 1,200 mg QPM ADEBAYO Administration Insulin Glargine 52 units 03/12/21 10:00 03/13/21 09:37 Insulin Glargine 100 Units/Ml SUB-Q 52 units QAM ADEBAYO Administration Insulin Human Lispro 0 unit 03/13/21 22:00 03/14/21 08:35 Insulin Lispro 100 Unit/Ml SUB-Q 6 unit ACHS ADEBAYO Administration Protocol Lactobacillus Rhamnosus 2 each 03/12/21 13:00 03/13/21 09:37 Lactobacillus Rhamnosus Gg 1 Each Cap PO 2 each DAILY ADEBAYO Administration Lisinopril 5 mg 03/14/21 10:00 Lisinopril 5 Mg Tab PO QDAY ADEBAYO Metoclopramide HCl 10 mg 03/12/21 11:30 03/14/21 08:35 Metoclopramide 10 Mg Tab PO 10 mg ACHS ADEBAYO Administration Ondansetron HCl 4 mg 03/11/21 18:00 03/14/21 03:31 Ondansetron 4 Mg/2 Ml Inj IV 4 mg Q8H PRN Administration Nausea And Vomiting Pantoprazole Sodium 40 mg 03/12/21 10:00 03/13/21 09:36 Pantoprazole 40 Mg Tab PO 40 mg DAILY ADEBAYO Administration Sodium Chloride 10 ml 03/11/21 22:00 03/13/21 21:28 Sodium Chloride 0.9% 10 Ml Flush Syringe IV 10 ml BID ADEBAYO Administration Sodium Chloride 10 ml 03/11/21 18:00 Sodium Chloride 0.9% 10 Ml Flush Syringe IV PRN PRN LINE FLUSH Tizanidine HCl 4 mg 03/12/21 10:00 03/13/21 21:27 Tizanidine Tab 4 Mg Tab PO 4 mg BID ADEBAYO Administration HEART Score - HEART Score EKG: Non-specific Age: > 65 Risk factors: > 3 risk factors or hx of atherosclerotic disease Troponin: Troponin T < 0.010 ng/mL (0.00-0.029) 03/13/21 15:18 Troponin: 1-3x normal limit - Critical Actions Critical Actions: 4-6 pts:12-16.6% risk of adverse cardiac event. Should be admitted
[2021-03-14] MEDS ORDERED: LISINOPRIL 5 MG TAB PO SCH (10:00)
--- NOTE | 2021-03-14 10:28 | Discharge Summary ---
Providers - Providers Date of Admission: 03/11/21 18:00 Attending physician: ZEYNEP LEE MD 03/11/21 18:06 Consult to Physician [CONS] Routine Comment: Consulting Provider: STUART MAKI Physician Instructions: Reason For Exam: dysphagia 03/11/21 23:04 Speech Therapy Evaluation and Treat [CONS] Routine Reason For Exam: esophageal dilitation 03/13/21 10:20 Consult to Physician [CONS] Routine Comment: Consulting Provider: ANYI RUSSELL Physician Instructions: Reason For Exam: chest pain 03/14/21 10:27 Consult to Case Management [CONS] Routine Services Needed at Discharge: Movie Actor Notified:: no Primary care physician: OFFICE CLERK ASSISTANT Hospitalization Reason for admission: dysphagia Condition: Stable Hospital course: 66 YO Female with Obesity Hypoventilation Syndrome, HTN, DM, OA, Asthma, COPD, Chronic Respiratory Failure on 2L Home Oxygen, Dysphagia S/P Esophageal Dilitation presents to ED for evaluation. Patient reports "it hurts when I swallow". Patient states that she has experienced pain upon swallowing which began 3 days after esophageal dilatation. Patient states the pain is 3/10, intermittent, associated with swallowing, and has been persistent over the past 2 weeks. EMS was notified and upon arrival the patient was found to be in distress and subsequently transported to [facility] for further care and evaluation of the aforementioned symptoms. The patient was seen and evaluated in the emergency department. All lab and imaging studies reviewed. Patient found to have symptoms consistent with odynophagia resulting in atypical chest pain. Patient placed in observation status and admitted to medical floor for further care and evaluation. GI team consulted in ED. Patient denies fever, chills, chest pain, palpitations, productive cough, skin rash, recent ill contacts, or known exposure to COVID-19. Prior admission on 03/31/2017 reviewed. All medication listed at time of admission has been reconciled. Advanced care planning conducted in ED. 03/12: Patient reported diarrhea this morningwe will check C. difficile colitis although I think this is less likely there is no abdominal pain and no fever. Awaiting Covid testing patient is chronically on oxygen 3 L at home as opposed to 2 days listed above from admission. She says that her odynophagia has not improved since the dilatation so will await GI evaluation as she is still unable to keep p.o. down. Imaging studies reviewed and noted lymphadenopathy is discussed with the patient this will need closer monitoring and evaluation I also recommended an outpatient hematology evaluation and referral has been put in for discharge planning. We will continue pain control for muscle wall pain likely underlying costochondritis although she denies any fall or trauma to the site she also denies any persistent cough. Home medication reconciliation done to the best of my knowledge we will continue to monitor her blood sugar considering her history of diabetes 03/13: Still with shortness of breath and chest pain, GI input noted. cardiology and Pulmonary consulted. started on steroids, will adjust insulin for better blood glucose control. 03/14: Clinically stable this morning, discussed with GI, no further intervention., ABG ordered to evaluate for potential hypercapenia. Also echocardiogram pending. Outpatient follow-up discussed in detail with the patient bedside commode has also been arranged for. Case management consultation. Discharge ultimately based on input from cardiology. (1) Dysphagia Current Visit: Yes Status: Acute Qualifiers: Dysphagia type: unspecified Qualified Code(s): R13.10 - Dysphagia, unspecified Plan to address problem: S/p esophageal dilation (2) Chronic respiratory failure Current Visit: Yes Status: Chronic Qualifiers: Respiratory failure complication: hypoxia Qualified Code(s): J96.11 - Chronic respiratory failure with hypoxia (3) Asthma Current Visit: Yes Status: Chronic (4) COPD (chronic obstructive pulmonary disease) Current Visit: Yes Status: Chronic (5) Obstructive sleep apnea Current Visit: Yes Status: Chronic (6) Obesity hypoventilation syndrome Current Visit: Yes Status: Chronic (7) Atypical chest pain Current Visit: Yes Status: Acute (8) Elevated d-dimer Current Visit: Yes Status: Acute Plan to address problem: -Chest CTA neg for PE -BLE Dopplers neg for DVT (9) Lymphadenopathy Current Visit: Yes Status: Chronic (10) Hypertension Current Visit: Yes Status: Chronic Qualifiers: Hypertension type: essential hypertension Qualified Code(s): I10 - Essential (primary) hypertension (11) Hyperlipidemia Current Visit: Yes Status: Chronic Qualifiers: Hyperlipidemia type: mixed hyperlipidemia Qualified Code(s): E78.2 - Mixed hyperlipidemia (12) Type 2 diabetes mellitus Current Visit: Yes Status: Chronic Qualifiers: Diabetes mellitus long filler cigar roller machine insulin use: with retirement use Diabetes mellitus complication status: without complication Qualified Code(s): E11.9 - Type 2 diabetes mellitus without complications; Z79.4 - director long term care (current) use of insulin (13) GERD (gastroesophageal reflux disease) Current Visit: Yes Status: Chronic Qualifiers: Esophagitis presence: with esophagitis Disposition: [id number]/[id number] HOME UNDER HOME HLTH Final Discharge Diagnosis (Prints w/discharge instructions): dysphagia Time spent for discharge: 35 mins Core Measure Documentation - Palliative Care Palliative Care/ Comfort Measures: Not Applicable - Core Measures Any of the following diagnoses?: none Exam - Physical Exam Narrative exam: General appearance: Present: mild distress, Morbid obese - EENT Eyes: Present: PERRL ENT: hearing intact, clear oral mucosa - Neck Neck: Present: supple, normal ROM - Respiratory Respiratory effort: normal Respiratory: bilateral: CTA - Cardiovascular Heart Sounds: Present: S1 & S2. Absent: rub, click - Extremities Extremities: pulses symmetrical, No edema Peripheral Pulses: within normal limits - Abdominal General gastrointestinal: Present: soft, non-tender, non-distended, normal bowel sounds Female genitourinary: Present: normal - Integumentary Integumentary: Present:see nursing documentation - Musculoskeletal Musculoskeletal: gait normal, strength equal bilaterally - Psychiatric Psychiatric: appropriate mood/affect, intact judgment & insight - Neurologic Neurologic: CNII-XII intact, moves all extremities - Constitutional Vitals: Temp Pulse Resp BP Pulse Ox 98.4 F 74 18 114/66 98 03/14/21 04:45 03/14/21 08:00 03/14/21 08:00 03/14/21 04:45 03/14/21 04:45 Plan Activity: advance as tolerated, fall precautions Diet: low fat, low salt Special Instructions: restrict fluid intake to (1500cc/day), record daily weights, record daily BP diary, physical therapy, occupational therapy, home oxygen via (nasal cannula @ 2 liters per minute), home health RN Durable Medical Equipment Needed Upon Discharge: Bedside Commode, other (trilogy) Follow up with: WALDEMAR CASTANO MD [Staff Physician] - 7 Days PRIMARY CARE, [Primary Care Provider] - 3-5 Days STUART MAKI MD [Staff Physician] - 7 Days JACKSON RIVERA MD [Staff Physician] - 7 Days Prescriptions: Lactobacillus Rhamnosus GG [Culturelle] 2 each PO DAILY #30 capsule methylPREDNISolone [Medrol 4MG DOSEPAK (21 tabs)] 4 mg PO . DIRECTED #1 tab.ds.pk Albuterol Sulfate [Proventil Hfa] 6.7 gm IH BID #1 lisinopriL [Zestril TAB] 5 mg PO QDAY #30 tablet
[2021-03-14] MEDS: INSULIN GLARGINE 100 UNITS/ML SUB-Q SCH (11:22)
[2021-03-14] MEDS: PANTOPRAZOLE 40 MG TAB PO SCH (11:27)
[2021-03-14] MEDS: tiZANidine TAB 4 MG TAB PO SCH (11:28)
[2021-03-14] MEDS: LACTOBACILLUS RHAMNOSUS GG 1 EACH CAP PO SCH (15:17)
[2021-03-14 18:55] VITALS: BP 109/61
--- NOTE | 2021-03-15 09:24 | Progress Note ---
Assessment and Plan Echo 03/13/2021 reviewed - EF 50-55%, mild concentric LVH, LVEDP elevated, no significant valvular abnormalities. Currently stable cardiac status. Pt may be discharged from a Cardiology perspective. Recommend follow-up with Dr. Silver Castro within 1-2 weeks ([phone]). Pt seen in conjunction with Dr. Figueroa, who agrees with the assessment and plan of care. - Patient Problems (1) Dysphagia Current Visit: Yes Status: Acute Qualifiers: Dysphagia type: unspecified Qualified Code(s): R13.10 - Dysphagia, unspecified Plan to address problem: S/p esophageal dilation (2) Chronic respiratory failure Current Visit: Yes Status: Chronic Qualifiers: Respiratory failure complication: hypoxia Qualified Code(s): J96.11 - Chronic respiratory failure with hypoxia (3) Asthma Current Visit: Yes Status: Chronic (4) COPD (chronic obstructive pulmonary disease) Current Visit: Yes Status: Chronic (5) Obstructive sleep apnea Current Visit: Yes Status: Chronic (6) Obesity hypoventilation syndrome Current Visit: Yes Status: Chronic (7) Atypical chest pain Current Visit: Yes Status: Acute (8) Elevated d-dimer Current Visit: Yes Status: Acute Plan to address problem: -Chest CTA neg for PE -BLE Dopplers neg for DVT (9) Lymphadenopathy Current Visit: Yes Status: Suspected (10) Hypertension Current Visit: Yes Status: Chronic Qualifiers: Hypertension type: essential hypertension Qualified Code(s): I10 - Essential (primary) hypertension (11) Hyperlipidemia Current Visit: Yes Status: Chronic Qualifiers: Hyperlipidemia type: mixed hyperlipidemia Qualified Code(s): E78.2 - Mixed hyperlipidemia (12) Type 2 diabetes mellitus Current Visit: Yes Status: Chronic Qualifiers: Diabetes mellitus intermission coordinator insulin use: with intermission coordinator use Diabetes mellitus complication status: without complication Qualified Code(s): E11.9 - Type 2 diabetes mellitus without complications; Z79.4 - penitentiary (current) use of insulin (13) GERD (gastroesophageal reflux disease) Current Visit: Yes Status: Chronic Qualifiers: Esophagitis presence: with esophagitis Subjective Date of service: 03/14/21 Principal diagnosis: Dysphagia Interval history: Still somewhat SOB, but states she does feel better. Also c/o persistent pain in her throat and tenderness of left chest wall. Objective Last Vital Signs Temp 98.2 F 03/14/21 11:33 Pulse 87 03/14/21 11:33 Resp 18 03/14/21 14:00 BP 137/77 03/14/21 11:33 Pulse Ox 98 03/14/21 14:00 - Physical Examination General: No Apparent Distress HEENT: Positive: EOMI, Normocephaly, Mucus Membranes Moist Neck: Positive: neck supple, trachea midline. Negative: JVD/HJR Cardiac: Positive: Reg Rate and Rhythm, S1/S2 Lungs: Positive: Decreased Breath Sounds Neuro: Positive: Grossly Intact Abdomen: Positive: Soft. Negative: Tender Skin: Negative: Rash Musculoskeletal: Normal Range of Motion Extremities: Present: upper extr. pulses, lower extr. pulses, +1 Edema (BLE) - Labs and Meds CBC 03/14/21 Range/Units 05:53 WBC 5.8 (4.5-11.0) K/mm3 RBC 4.19 (3.65-5.03) M/mm3 Hgb 12.0 (10.1-14.3) gm/dl Hct 35.5 (30.3-42.9) % Plt Count 174 (140-440) K/mm3 Comprehensive Metabolic Panel 03/14/21 Range/Units 05:53 Sodium 134 L (137-145) mmol/L Potassium 4.5 D (3.6-5.0) mmol/L Chloride 94.9 L (98-107) mmol/L Carbon Dioxide 31 H (22-30) mmol/L BUN 14 (7-17) mg/dL Creatinine 0.8 (0.6-1.2) mg/dL Glucose 342 H (65-100) mg/dL Calcium 8.7 (8.4-10.2) mg/dL - Imaging and Cardiology EKG: report reviewed, image reviewed Nuclear stress test: report reviewed (08/2020 - negative for ischemia) Echo: report reviewed (03/13/2021 - EF 50-55%, mild concentric LVH, LVEDP elevated, no significant valvular abnormalities) Cardiac cath: report reviewed (12/2018 - mild ostial diag stenosis, otherwise normal coronaries, normal LV systolic fxn) - Telemetry EKG Rhythm: Sinus Rhythm - EKG Sinus rhythms and dysrhythmias: sinus rhythm QRS axis and voltage: left axis deviation
== END 2021-03-14 19:40 | disposition home health service (06) ==
LOC: ED 16:20 → 3A 03-11 18:00
PROVIDERS: ADMIT Internal Medicine; ATTEND Internal Medicine
DX: R13.10 Dysphagia, unspecified (principal); Z20.822 Contact with and (suspected) exposure to COVID-19; J96.11 Chronic respiratory failure with hypoxia; I10 Essential (primary) hypertension; E66.2 Morbid (severe) obesity with alveolar hypoventilation; M19.90 Unspecified osteoarthritis, unspecified site; J44.9 Chronic obstructive pulmonary disease, unspecified; E11.9 Type 2 diabetes mellitus without complications; E78.5 Hyperlipidemia, unspecified; R59.1 Generalized enlarged lymph nodes; K21.9 Gastro-esophageal reflux disease without esophagitis; R77.8 Other specified abnormalities of plasma proteins; R16.0 Hepatomegaly, not elsewhere classified; Z68.43 Body mass index [BMI] 50.0-59.9, adult; Z98.890 Other specified postprocedural states; Z79.899 Other long term (current) drug therapy; Z79.4 Long term (current) use of insulin; Z96.653 Presence of artificial knee joint, bilateral
CPT/HCPCS: 36415; 70490; 71046; 71275; 74177; 80048; 80053; 81001; 82728; 82947; 82962; 83615; 83880; 84145; 84484; 85025; 85027; 85379; 86140; 92610; 93005; 93306; 93970; 94640; 96361; 96374; 96375; 96376; 99285; G0378; J1940; J2060; J2405; J2920; J7030; Q9967; U0003; J1815